=== PATIENT | female | born 1935 | race Caucasian/White ===

== ENCOUNTER 2023-07-02 23:24 | Outpatient (CLI) | payer SELFPAY | END 2023-07-02 23:25 | disposition EMS.NT | LOC: EMS 23:24 | DX: T17.298A Other foreign object in pharynx causing other injury, initial encounter (principal); R04.2 Hemoptysis; W44.8XXA Other foreign body entering into or through a natural orifice, initial encounter ==

== ENCOUNTER 2023-07-08 09:04 | Outpatient (CLI) | payer MEDICARE, OTHER ==
[2023-07-08 15:01] LABS: BASOPHILS % (AUTO) 0.5 %; EOSINOPHILS # (AUTO) 0.1 10^3/uL (0.0-0.7); EOSINOPHILS % (AUTO) 2.1 %; HCT - HEMATOCRIT 38.3 % (37.0-47.0); HGB - HEMOGLOBIN 12.7 g/dL (12.0-16.0); LYMPHOCYTES # (AUTO) 0.8 10^3/uL (1.5-3.5); LYMPHOCYTES % (AUTO) 13.4 %; MEAN CORPUSCULAR HEMOGLOBIN 34.8 pg (27.0-31.0); MEAN CORPUSCULAR HGB CONC 33.2 g/dL (32.0-36.0); MEAN CORPUSCULAR VOLUME 104.9 fL (81.0-99.0); MEAN PLATELET VOLUME 9.3 fL (7.9-10.8); MONOCYTES # (AUTO) 0.5 10^3/uL (0.0-1.0); MONOCYTES % (AUTO) 9.1 %; NEUTROPHILS # (AUTO) 4.2 10^3/uL (1.5-6.6); NEUTROPHILS % (AUTO) 74.5 %; PLT - PLATELET COUNT 200 10^3/uL (130-450); RED BLOOD COUNT 3.65 10^6/uL (4.20-5.40); RED CELL DISTRIBUTION WIDTH 14.2 % (12.0-15.0); WHITE BLOOD COUNT 5.6 x10^3/uL (4.8-10.8)
[2023-07-08 16:11] LABS: CALCIUM 9.7 mg/dL (8.5-10.3); CREATININE 0.6 mg/dL (0.6-1.3); POTASSIUM 3.9 mmol/L (3.5-4.5)
== END 2023-07-08 09:05 | disposition home or self-care (01) ==
LOC: LAB.S 09:04
PROVIDERS: ATTEND Internal Medicine Cardiovascular Disease
DX: I10 Essential (primary) hypertension (principal); I48.0 Paroxysmal atrial fibrillation
CPT/HCPCS: 36415; 80048; 85025

== ENCOUNTER 2023-07-14 07:00 | Outpatient (CLI) | payer MEDICARE, OTHER | END 2023-07-14 23:59 | disposition home or self-care (01) | LOC: LAB.S 07:00 | PROVIDERS: ATTEND Registered Nurse | DX: N12 Tubulo-interstitial nephritis, not specified as acute or chronic (principal); R31.9 Hematuria, unspecified | CPT/HCPCS: 87077; 87086; 87181 ==

== ENCOUNTER 2023-09-17 07:40 | Outpatient (CLI) | payer MEDICARE, OTHER ==
[2023-09-17 15:30] LABS: BASOPHILS % (AUTO) 0.6 %; EOSINOPHILS # (AUTO) 0.1 10^3/uL (0.0-0.7); EOSINOPHILS % (AUTO) 2.8 %; HCT - HEMATOCRIT 37.9 % (37.0-47.0); HGB - HEMOGLOBIN 12.3 g/dL (12.0-16.0); LYMPHOCYTES # (AUTO) 0.9 10^3/uL (1.5-3.5); LYMPHOCYTES % (AUTO) 16.9 %; MEAN CORPUSCULAR HEMOGLOBIN 34.9 pg (27.0-31.0); MEAN CORPUSCULAR HGB CONC 32.5 g/dL (32.0-36.0); MEAN CORPUSCULAR VOLUME 107.7 fL (81.0-99.0); MONOCYTES # (AUTO) 0.4 10^3/uL (0.0-1.0); MONOCYTES % (AUTO) 7.9 %; NEUTROPHILS # (AUTO) 3.6 10^3/uL (1.5-6.6); NEUTROPHILS % (AUTO) 71.6 %; PLT - PLATELET COUNT 226 10^3/uL (130-450); RED BLOOD COUNT 3.52 10^6/uL (4.20-5.40); RED CELL DISTRIBUTION WIDTH 15.5 % (12.0-15.0); WHITE BLOOD COUNT 5.1 x10^3/uL (4.8-10.8)
[2023-09-17 15:42] LABS: CHOL/HDL RATIO 3.3 (<4.4); CHOLESTEROL 158 mg/dL; HDL CHOLESTEROL 48 mg/dL; LDL CHOLESTEROL,CALCULATED 95 mg/dL; TRIGLYCERIDES 77 mg/dL (48-352); VLDL CHOLESTEROL 15 mg/dL
[2023-09-17 15:57] LABS: ALBUMIN 3.7 g/dL (3.2-5.5); ALBUMIN/GLOBULIN RATIO 1.2 (1.0-2.2); ALKALINE PHOSPHATASE 68 IU/L (42-121); ALT ALANINE AMINOTRANSFERASE 9 IU/L (10-60); AST ASPARTATE AMINOTRANSFERASE 27 IU/L (10-42); BILIRUBIN,TOTAL 0.5 mg/dL (0.2-1.0); BUN - BLOOD UREA NITROGEN 12 mg/dL (6-20); CALCIUM 9.4 mg/dL (8.5-10.3); CARBON DIOXIDE - CO2 28 mmol/L (21-32); CHLORIDE 102 mmol/L (101-111); CREATININE 0.6 mg/dL (0.6-1.3); GFR - MDRD 94 (>89); GLUCOSE 124 mg/dL (74-104); POTASSIUM 4.8 mmol/L (3.5-4.5); SODIUM 136 mmol/L (135-145); TOTAL PROTEIN 6.9 g/dL (6.4-8.9)
== END 2023-09-17 07:41 | disposition home or self-care (01) ==
LOC: LAB.S 07:40
PROVIDERS: ATTEND Internal Medicine Cardiovascular Disease
DX: I50.42 Chronic combined systolic (congestive) and diastolic (congestive) heart failure (principal); E78.00 Pure hypercholesterolemia, unspecified; I20.89 Other forms of angina pectoris
CPT/HCPCS: 36415; 80053; 80061; 82172; 83721; 83880; 85025

== ENCOUNTER 2023-09-17 08:00 | Outpatient (CLI) | payer MEDICARE, OTHER | END 2023-09-17 23:59 | disposition home or self-care (01) | LOC: LAB.S 08:00 | PROVIDERS: ATTEND Registered Nurse | DX: R30.0 Dysuria (principal); R31.9 Hematuria, unspecified; I50.42 Chronic combined systolic (congestive) and diastolic (congestive) heart failure; E78.00 Pure hypercholesterolemia, unspecified; I20.89 Other forms of angina pectoris | CPT/HCPCS: 36415; 80053; 80061; 82172; 83721; 83880; 85025; 87077; 87086; 87181 ==

== ENCOUNTER 2023-09-19 12:28 | Outpatient (CLI) | payer MEDICARE, OTHER | END 2023-09-19 12:29 | disposition home or self-care (01) | LOC: DI 12:28 | PROVIDERS: ATTEND Internal Medicine Cardiovascular Disease | DX: I08.3 Combined rheumatic disorders of mitral, aortic and tricuspid valves (principal) | CPT/HCPCS: 93307 ==

== ENCOUNTER 2023-10-01 08:00 | Outpatient (CLI) | payer MEDICARE, OTHER | END 2023-10-01 23:59 | disposition home or self-care (01) | LOC: LAB.S 08:00 | PROVIDERS: ATTEND Registered Nurse | DX: R30.0 Dysuria (principal) | CPT/HCPCS: 87077; 87086; 87181 ==

== ENCOUNTER 2023-10-08 11:44 | Emergency (ER) | payer MEDICARE, OTHER ==
[2023-10-08 12:55] LABS: BILIRUBIN,URINE NEGATIVE (NEGATIVE); GLUCOSE, URINE (UA) NEGATIVE (NEGATIVE); KETONES,URINE (UA) NEGATIVE (NEGATIVE); LEUKOCYTE ESTERASE, URINE NEGATIVE (NEGATIVE); NITRITE,URINE NEGATIVE (NEGATIVE); OCCULT BLOOD,URINE MODERATE (NEGATIVE); PROTEIN,URINE NEGATIVE (NEGATIVE); UROBILINOGEN,URINE 0.2 (NORMAL) E.U./dL (NORMAL)
[2023-10-08 12:56] LABS: CLARITY,URINE CLEAR (CLEAR)
[2023-10-08 13:07] LABS: BACTERIA,URINE Rare /HPF (None Seen); SQUAMOUS EPITHELIAL CELL,UR RARE Squamous (<= Few); WBC,URINE 0-3 /HPF (0-5)
[2023-10-08 13:11] LABS: BASOPHILS % (AUTO) 0.4 %; EOSINOPHILS # (AUTO) 0.3 10^3/uL (0.0-0.7); EOSINOPHILS % (AUTO) 6.3 %; HCT - HEMATOCRIT 31.3 % (37.0-47.0); HGB - HEMOGLOBIN 10.2 g/dL (12.0-16.0); LYMPHOCYTES # (AUTO) 0.6 10^3/uL (1.5-3.5); MEAN CORPUSCULAR HEMOGLOBIN 34.8 pg (27.0-31.0); MEAN CORPUSCULAR HGB CONC 32.6 g/dL (32.0-36.0); MEAN CORPUSCULAR VOLUME 106.8 fL (81.0-99.0); MEAN PLATELET VOLUME 9.6 fL (7.9-10.8); MONOCYTES # (AUTO) 0.4 10^3/uL (0.0-1.0); MONOCYTES % (AUTO) 7.3 %; NEUTROPHILS # (AUTO) 3.6 10^3/uL (1.5-6.6); NEUTROPHILS % (AUTO) 72.4 %; PLT - PLATELET COUNT 153 10^3/uL (130-450); RED BLOOD COUNT 2.93 10^6/uL (4.20-5.40); RED CELL DISTRIBUTION WIDTH 15.6 % (12.0-15.0); WHITE BLOOD COUNT 4.9 x10^3/uL (4.8-10.8)
[2023-10-08 13:39] LABS: ALBUMIN 3.6 g/dL (3.2-5.5); ALBUMIN/GLOBULIN RATIO 1.4 (1.0-2.2); BILIRUBIN,TOTAL 0.6 mg/dL (0.2-1.0); CALCIUM 9.5 mg/dL (8.5-10.3); CREATININE 0.6 mg/dL (0.6-1.3); POTASSIUM 3.8 mmol/L (3.5-4.5); TOTAL PROTEIN 6.2 g/dL (6.4-8.9)
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
[2023-10-08] MEDS: ACETAMINOPHEN 325 MG TABLET PO STA (15:01)
[2023-10-08] MEDS: DIPHENOX/ATROPINE 2.5/0.025 MG TABLET PO STA (15:01)
[2023-10-08 15:35] VITALS: BP 151/81; O2SAT 99
== END 2023-10-08 15:43 | disposition home or self-care (01) ==
LOC: ED 11:44
DX: K52.89 Other specified noninfective gastroenteritis and colitis (principal); K62.5 Hemorrhage of anus and rectum; I11.0 Hypertensive heart disease with heart failure; I50.9 Heart failure, unspecified; E78.00 Pure hypercholesterolemia, unspecified; I48.91 Unspecified atrial fibrillation; I49.9 Cardiac arrhythmia, unspecified; M06.9 Rheumatoid arthritis, unspecified; Z79.01 Long term (current) use of anticoagulants; Z79.899 Other long term (current) drug therapy; Z95.0 Presence of cardiac pacemaker
CPT/HCPCS: 36415; 80053; 81001; 83690; 85025; 87493; 99283; A9270; 81003; 87086

== ENCOUNTER 2024-01-05 14:01 | Outpatient (CLI) | payer MEDICARE, OTHER ==
[2024-01-05 20:18] LABS: CALCIUM 9.5 mg/dL (8.5-10.3); CREATININE 0.5 mg/dL (0.6-1.3)
[2024-01-05 20:23] LABS: BASOPHILS % (AUTO) 0.6 %; EOSINOPHILS # (AUTO) 0.1 10^3/uL (0.0-0.7); EOSINOPHILS % (AUTO) 2.9 %; HGB - HEMOGLOBIN 12.8 g/dL (12.0-16.0); LYMPHOCYTES # (AUTO) 0.8 10^3/uL (1.5-3.5); LYMPHOCYTES % (AUTO) 15.5 %; MEAN CORPUSCULAR HEMOGLOBIN 33.1 pg (27.0-31.0); MEAN CORPUSCULAR VOLUME 103.4 fL (81.0-99.0); MEAN PLATELET VOLUME 10.6 fL (7.9-10.8); MONOCYTES # (AUTO) 0.4 10^3/uL (0.0-1.0); MONOCYTES % (AUTO) 7.4 %; NEUTROPHILS # (AUTO) 3.6 10^3/uL (1.5-6.6); NEUTROPHILS % (AUTO) 73.4 %; PLT - PLATELET COUNT 210 10^3/uL (130-450); RED BLOOD COUNT 3.87 10^6/uL (4.20-5.40); RED CELL DISTRIBUTION WIDTH 16.6 % (12.0-15.0); WHITE BLOOD COUNT 4.8 x10^3/uL (4.8-10.8)
== END 2024-01-05 14:02 | disposition home or self-care (01) ==
LOC: LAB.S 14:01
PROVIDERS: ATTEND Internal Medicine Cardiovascular Disease
DX: I10 Essential (primary) hypertension (principal)
CPT/HCPCS: 36415; 80048; 85025

== ENCOUNTER 2025-03-29 20:11 | Inpatient (IN) ==
--- OUTSIDE RECORDS SUMMARY | 2025-03-29 20:18 | EXTERNAL MEDICAL SUMMARY RPT | Continuity of Care Document ---
Author Organization [place] Address [address] [place] [id number] Phone Problems date description facility 2024-12-29 09:35 Nonrheumatic aortic (valve) [facility] 2024-12-29 09:36 Nonrheumatic aortic (valve) [facility] 2024-12-30 00:03 Nonrheumatic aortic (valve) [facility] 2024-12-30 10:59 Nonrheumatic aortic (valve) [facility] 2025-01-20 14:45 Urinary tract infection, site n ot specified [facility] 2025-01-21 00:06 Urinary tract infection, site n ot specified [facility] 2025-01-24 11:20 Procedure and treatm ent not carried out due to patient leaving prior to being seen by health care provider [facility] 2025-01-25 14:12 Urinary tract infection, site n ot specified [facility] 2025-02-28 06:17 Chest pain, unspecified [facility] 2025-02-28 06:32 Chest pain, unspecified [facility] 2025-03-02 09:57 [facility] 2025-03-02 09:57 Chest pain, [facility] 2025-03-03 15:34 Other chest pain [facility] 2025-03-20 22:55 Pain in thoracic spine [facility] 2025-03-20 22:55 Cough, unspecified [facility] 2025-03-20 22:55 Dyspnea, unspecified [facility] 2025-03-24 09:10 Pain in thoracic spine [facility] 2025-03-24 09:10 Cough, unspecified [facility] 2025-03-24 09:10 Dyspnea, unspecified [facility] 2025-03-24 09:10 Other forms [facility]pnea [facility] 2025-03-24 09:10 Other specified symp toms and signs involving the circulatory and respiratory systems [facility] 2025-03-24 11:02 Shortness of breath Alexa Cobos [facility] Results/Labs test date facility value unit notes Result panel 1 NUCLEATED RED BLOOD CELLS AUTO 2024-12-29 09:53 [facility] /100wbc (missing) BASOPHILS # (AUTO) 2024-12-29 09:53 [facility] 0.0 10 3/ul (missing) NRBC ABSOLUTE COUNT (AUTO) 2024-12-29 09:53 [facility] 0.00 x10 3/ul (missing) EOSINOPHILS # (AUTO) 2024-12-29 09:53 [facility] 0.1 10 3/ul (missing) CREATININE 2024-12-29 09:53 [facility] 0.6 mg/dl As of October 2022 testing method has changed, this may include reference ranges. MONOCYTES # (AUTO) 2024-12-29 09:53 [facility] 0.8 10 3/ul (missing) LYMPHOCYTES # (AUTO) 2024-12-29 09:53 [facility] 0.8 10 3/ul (missing) MEAN CORPUSCULAR VOLUME 2024-12-29 09:53 [facility] 104.4 fl (missing) HGB - HEMOGLOBIN 2024-12-29 09:53 [facility] 12.8 g /dl (missing) GLUCOSE 2024-12-29 09:53 [facility] 122 mg/dl As of October 2022 testing method has changed, this may include reference ranges. SODIUM 2024-12-29 09:53 [facility] 133 mmol/l (missing) RED CELL DISTRIBUTION WIDTH 2024-12-29 09:53 [facility] 14.9 % (mi ssing) PLT - PLATELET COUNT 2024-12-29 09:53 [facility] 195 10 3/ul (missing) RED BLOOD COUNT 2024-12-29 09:53 [facility] 3.63 10 6/ul (missing) CARBON DIOXIDE - CO2 2024-12-29 09:53 [facility] 30 mmol/l As of October 2022 testing method has changed, this may include reference ranges. MEAN CORPUSCULAR HGB CONC 2024-12-29 09:53 [facility] 33.8 g/dl (missing) MEAN CORPUSCULAR HEMOGLOBIN 2024-12-29 09:53 [facility] 35.3 pg (missing) HCT - HEMATOCRIT 2024-12-29 09:53 [facility] 37.9 % (missing) POTASSIUM 2024-12-29 09:53 [facility] 4.2 mmol/l As of October 2022 testing method has changed, this may include reference ranges. NEUTROPHILS # (AUTO) 2024-12-29 09:53 [facility] 5.6 10 3/ul (missing) ANION GAP 2024-12-29 09:53 [facility] 6.0 (missing ) (missing) WHITE BLOOD COUNT 2024-12-29 09:53 [facility] 7.3 x10 3/ul (missing) BUN - BLOOD UREA NITROGEN 2024-12-29 09:53 [facility] 8 mg/dl As of Oct testing method has changed, this may include reference ranges. CALCIUM 2024-12-29 09:53 [facility] 9.3 mg/dl As of October 2022 testing method has changed, this may include reference ranges. MEAN PLATELET VOLUME 2024-12-29 09:53 [facility] 9.6 fl (missing) GFR - MDRD 2024-12-29 09:53 [facility] 94 (missin g) The IDMS-traceable MDRD Study Equation has been validated extensively in and populations between the ages of 18 and 70 with impaired kidney function (eGFR < 60 mL/min/1.73m2) and has shown good performance for patients with all common causes of kidney disease. Although this equation has not been validated for patients older than 70, an MDRD-derived eGFR may still be a useful tool for providers caring for patients older than 70. References: http://www.nkdep.n ih.gov/lab-evaluat ion/gfr/creatinine -stand ardization, last updated June 2011. CHLORIDE 2024-12-29 09:53 [facility] 97 mmol/l As of October 2022 testing method has changed, this may include reference ranges. Result panel 2 GENTAMICIN 2025-01-20 14:12 [facility] >=16 (missing) (missing) TRIMETHOPRIM/SULFA METHOXAZOLE 2025-01-20 14:12 [facility] >=320 (missing) (missing) CEFEPIME 2025-01-20 14:12 [facility] <=0.12 (missing) (missing) ERTAPENEM 2025-01-20 14:12 [facility] <=0.12 (missing) (missing) CEFTRIAXONE 2025-01-20 14:12 [facility] <=0.25 (missing) (missing) CIPROFLOXACIN 2025-01-20 14:12 [facility] <=0.25 (missing) (missing) IMIPENEM 2025-01-20 14:12 [facility] <=0.25 (missing) (missing) NITROFURANTOIN 2025-01-20 14:12 [facility] <=16 (missing) (missing) AMPICILLIN/SULBACT AM 2025-01-20 14:12 [facility] <=2 (missing) (missing) AMPICILLIN 2025-01-20 14:12 [facility] <=2 (missing) This organism is NEGATIVE for Extended Spectrum Beta Lactamase CEFAZOLIN 2025-01-20 14:12 [facility] <=4 (missing) (missing) LEVOFLOXACIN 2025-01-20 14:12 [facility] 0.5 (missing) (missing) CUL, URINE 2025-01-20 14:12 [facility] 100>100,000 CFU/mL (missing) (missing) TOBRAMYCIN 2025-01-20 14:12 [facility] 8 (missing) (missing) O:ESCCOL 2025-01-20 14:12 [facility] ESCCOLESCHERICHIA COLIESCHERICHIA COLI (missing) (missing) CUL, URINE 2025-01-20 14:12 [facility] GNRGRAM NEGATIVE NICHELLE TO BE FURTHER IDENTIFIED (missing) (missing) CUL, URINE 2025-01-20 14:12 [facility] IDMIC.1ORG 1 ID/DEAN COM* (missing) (missing) CUL, URINE 2025-01-20 14:12 [facility] ORG.1PRELIM ORG ID* (missing) (missing) CUL, URINE 2025-01-20 14:12 [facility].1ORG 1 CC* (missing) (missing) CUL, URINE 2025-01-20 14:12 [facility].6COLONY COUNT (missing) (missing) CUL, URINE 2025-01-20 14:12 [facility] YIDENTIFICATION AND SENSITIVITIES TO FOLLOW (missing) (missing) Result panel 3 NUCLEATED RED BLOOD CELLS AUTO 2025-02-28 05:09 [facility] 0.0 /100wbc (missing) BASOPHILS # (AUTO) 2025-02-28 05:09 [facility] 0.0 10 3/ul (missing) NRBC ABSOLUTE COUNT (AUTO) 2025-02-28 05:09 [facility] 0.00 x10 3/ul (missing) EOSINOPHILS # (AUTO) 2025-02-28 05:09 [facility] 0.1 10 3/ul (missing) MONOCYTES # (AUTO) 2025-02-28 05:09 [facility] 0.4 10 3/ul (missing) CREATININE 2025-02-28 05:09 [facility] 0.5 mg/dl As of October 2022 testing method has changed, this may include reference ranges. LYMPHOCYTES # (AUTO) 2025-02-28 05:09 [facility] 0.7 10 3/ul (missing) BILIRUBIN,TOTAL 2025-02-28 05:09 [facility] 0.8 mg/dl As of October 2022 testing method has changed, this may include reference ranges. ALBUMIN/GLOBULIN RATIO 2025-02-28 05:09 [facility] 1.3 (missing) (missing) CHLORIDE 2025-02-28 05:09 [facility] 100 mmol/l As of October 2022 testing method has changed, this may include reference ranges. MEAN CORPUSCULAR VOLUME 2025-02-28 05:09 [facility] 104.5 fl (missing) GFR - MDRD 2025-02-28 05:09 [facility] 116 (missing) The IDMS-traceable MDRD Study Equation has been validated extensively in and populations between the ages of 18 and 70 with impaired kidney function (eGFR < 60 mL/min/1.73m2) and has shown good performance for patients with all common causes of kidney disease. Although this equation has not been validated for patients older than 70, an MDRD-derived eGFR may still be a useful tool for providers caring for patients older than 70. References: http://www.nkdep. nih.gov/lab-evalu ation/gfr/creatin ine-stand ardization, last updated June 2011. GLUCOSE 2025-02-28 05:09 [facility] 116 mg/dl As of October 2022 testing method has changed, this may include reference ranges. ALT ALANINE AMINOTRANSFERASE 2025-02-28 05:09 [facility] 12 iu/l As of October 2022 testing method has changed, this may include reference ranges. HGB - HEMOGLOBIN 2025-02-28 05:09 [facility] 12.7 g/dl (missing) SODIUM 2025-02-28 05:09 [facility] [employer] 134 mmol/l (missing) RED CELL DISTRIBUTION WIDTH 2025-02-28 05:09 [facility] 15.2 % (missing) PLT - PLATELET COUNT 2025-02-28 05:09 [facility] 167 10 3/ul (missing) GLOBULIN 2025-02-28 05:09 [facility] [employer] 2.7 g/dl (missing) AST ASPARTATE AMINOTRANSFERASE 2025-02-28 05:09 [facility] 23 iu/l As of October 2022 testing method has changed, this may include reference ranges. CARBON DIOXIDE - CO2 2025-02-28 05:09 [facility] 27 mmol/l As of October 2022 testing method has changed, this may include reference ranges. ALBUMIN 2025-02-28 05:09 [facility] 3.5 g/dl As of October 2022 testing method has changed, this may include reference ranges. RED BLOOD COUNT 2025-02-28 05:09 [facility] 3.55 10 6/ul (missing) POTASSIUM 2025-02-28 05:09 [facility] 3.6 mmol/l As of October 2022 testing method has changed, this may include reference ranges. MEAN CORPUSCULAR HGB CONC 2025-02-28 05:09 [facility] 34.2 g/dl (missing) MEAN CORPUSCULAR HEMOGLOBIN 2025-02-28 05:09 [facility] 35.8 pg (missing) HCT - HEMATOCRIT 2025-02-28 05:09 [facility] 37.1 % (missing) NEUTROPHILS # (AUTO) 2025-02-28 05:09 [facility] 4.8 10 3/ul (missing) BUN - BLOOD UREA NITROGEN 2025-02-28 05:09 [facility] 5 mg/dl As of October 2022 testing method has changed, this may include reference ranges. WHITE BLOOD COUNT 2025-02-28 05:09 [facility] 6.0 x10 3/ul (missing) TOTAL PROTEIN 2025-02-28 05:09 [facility] 6.2 g/dl As of October 2022 testing method has changed, this may include reference ranges. ANION GAP 2025-02-28 05:09 [facility] 7.0 (missing) (missing) CALCIUM 2025-02-28 05:09 [facility] 8.7 mg/dl As of October 2022 testing method has changed, this may include reference ranges. TROPONIN I HIGH SENSITIVITY 2025-02-28 05:09 [facility] 8.8 ng/l A HIGH SENSITIVITY TROPONIN result of >= 14.9 ng/L for females is considered POSITIVE. A HIGH SENSITIVITY TROPONIN result of >= 19.8 ng/L for males is considered POSITIVE. A HIGH SENSITIVITY TROPONIN result of >= 17.9 ng/L for unspecified is considered POSITIVE. MEAN PLATELET VOLUME 2025-02-28 05:09 [facility] 9.9 fl (missing) ALKALINE PHOSPHATASE 2025-02-28 05:09 [facility] 90 iu/l As of October 2022 testing method has changed, this may include reference ranges. Result panel 4 NUCLEATED RED BLOOD CELLS AUTO 2025-03-20 21:00 [facility] 0.0 /100wbc (missing) NRBC ABSOLUTE COUNT (AUTO) 2025-03-20 21:00 [facility] 0.00 x10 3/ul (missing) BASOPHILS # (AUTO) 2025-03-20 21: [facility] 0.1 10 3/ul (missing) EOSINOPHILS # (AUTO) 2025-03-20 21:00 [facility] 0.3 10 3/ul (missing) CREATININE 2025-03-20 21:00 [facility] 0.5 mg/dl As of October 2022 testing method has changed, this may include reference ranges. MONOCYTES # (AUTO) 2025-03-20 21:00 [facility] 0.6 10 3/ul (missing) LYMPHOCYTES # (AUTO) 2025-03-20 21:00 [facility] 0.6 10 3/ul (missing) BILIRUBIN,TOTAL 2025-03-20 21:00 [facility] 0.6 mg/dl As of October 2022 testing method has changed, this may include reference ranges. ALBUMIN/GLOBULIN RATIO 2025-03-20 21:00 [facility] 1.3 (missing) (missing) MEAN CORPUSCULAR VOLUME 2025-03-20 21:00 [facility] 105.7 fl (missing) ALKALINE PHOSPHATASE 2025-03-20 21:00 [facility] 108 iu/l As of October 2022 testing method has changed, this may include reference ranges. LIPASE 2025-03-20 21:00 [facility] 11 u/l As of October 2022 testing method has changed, this may include reference ranges. HGB - HEMOGLOBIN 2025-03-20 21:00 [facility] 11.3 g/dl (missing) GFR - MDRD 2025-03-20 21:00 [facility] 116 (missing) The IDMS-traceable MDRD Study Equation has been validated extensively in and populations between the ages of 18 and 70 with impaired kidney function (eGFR < 60 mL/min/1.73m2) and has shown good performance for patients with all common causes of kidney disease. Although this equation has not been validated for patients older than 70, an MDRD-derived eGFR may still be a useful tool for providers caring for patients older than 70. References: http://www.nkdep. nih.gov/lab-evalu ation/gfr/creatin ine-stand ardization, last updated June 2011. ALT ALANINE AMINOTRANSFERASE 2025-03-20:00 [facility] 13 iu/l As of October 2022 testing method has changed, this may include reference ranges. SODIUM 2025-03-20 21:00 [facility] 132 mmol/l (missing) GLUCOSE 2025-03-20:00 [facility] 134 mg/dl As of October 2022 testing method has changed, this may include reference ranges. RED CELL DISTRIBUTION WIDTH 2025-03-20:00 [facility] 14.8 % (missing) PLT - PLATELET COUNT 2025-03-20 21:00 [facility] 178 10 3/ul (missing) GLOBULIN 2025-03-20 21:00 [facility] 2.6 g/dl (missing) AST ASPARTATE AMINOTRANSFERASE 2025-03-20: [facility] 21 iu/l As of October 2022 testing method has changed, this may include reference ranges. CARBON DIOXIDE - CO2 2025-03-20: [facility] 29 mmol/l As of October 2022 testing method has changed, this may include reference ranges. RED BLOOD COUNT 2025-03-20: [facility] 3.14 10 6/ul (missing) ALBUMIN 2025-03-20: [facility] 3.3 g/dl As of October 2022 testing method has changed, this may include reference ranges. POTASSIUM 2025-03-20: [facility] 3.8 mmol/l As of October 2022 testing method has changed, this may include reference ranges. HCT - HEMATOCRIT 2025-03-20: [facility] 33.2 % (missing) MEAN CORPUSCULAR HGB CONC 2025-03-20: [facility] 34.0 g/dl (missing) MEAN CORPUSCULAR HEMOGLOBIN 2025-03-20:00 [facility] 36.0 pg (missing) TOTAL PROTEIN 2025-03-20: [facility] 5.9 g/dl As of October 2022 testing method has changed, this may include reference ranges. ANION GAP 2025-03-20: [facility] 6.0 (missing) (missing) NEUTROPHILS # (AUTO) 2025-03-20:00 [facility] 6.6 10 3/ul (missing) BUN - BLOOD UREA NITROGEN 2025-03-20 21:00 [employer] 7 mg/dl As of October 2022 testing method has changed, this may include reference ranges. WHITE BLOOD COUNT 2025-03-20 21:00 [facility] 8.1 x10 3/ul (missing) CALCIUM 2025-03-20 21:00 [facility] [employer] 8.6 mg/dl As of October 2022 testing method has changed, this may include reference ranges. MEAN PLATELET VOLUME 2025-03-20 21:00 [facility] 9.5 fl (missing) CHLORIDE 2025-03-20 21:00 [facility] 97 mmol/l As of October 2022 testing method has changed, this may include reference ranges. Result panel 5 CASTS, URINE 2025-03-20 21:45 [facility] 0-2 Hyaline Casts /lpf (missing) WBC,URINE 2025-03-20 21:45 [facility] 0-3 /hpf (missing) RBC,URINE 2025-03-20 21:45 [facility] 0-5 /hpf (missing) UROBILINOGEN,URI NE 2025-03-20 21:45 [facility] 0.2 (NORMAL) e.u./dl (missing) SPECIFIC GRAVITY,URINE 2025-03-20 21:45 [facility] 1.020 (missing) (missing) PH,URINE 2025-03-20:45 [facility] 6.0 ph (missing) CLARITY,URINE 2025-03-20:45 [facility] CLEAR (missing) (missing) SQUAMOUS EPITHELIAL CELL,UR 2025-03-20 21:45 [facility] FEW Squamous (missing) (missing) LEUKOCYTE ESTERASE, URINE 2025-03-20 21:45 [facility] NEGATIVE (missing) (missing) NITRITE,URINE 2025-03-20 21:45 [facility] NEGATIVE (missing) (missing) BILIRUBIN,URINE 2025-03-20 21:45 [facility] NEGATIVE (missing) Bilirubin can be influenced by color interference. Please correlate positive results with clinical presentation GLUCOSE, URINE (UA) 2025-03-20 21:45 [facility] NEGATIVE mg/dl (missing) KETONES,URINE (UA) 2025-03-20 21:45 [facility] NEGATIVE mg/dl (missing) PROTEIN,URINE 2025-03-20 21:45 [facility] NEGATIVE mg/dl (missing) UR CULTURE IF IND 2025-03-20 21:45 [facility] NOT INDICATED (missing) (missing) BACTERIA,URINE 2025-03-20 21:45 [facility] None Seen /hpf (missing) OCCULT BLOOD,URINE 2025-03-20 21:45 [facility] TRACE-LYSED (missing) (missing) COLOR,URINE 2025-03-20 21:45 [facility] YELLOW (missing) URINE CATHETERIZED Social History date description facility
--- NOTE | 2025-03-29 20:36 | ED Physician Documentation ---
History of Present Illness Stated complaint Stated Complaint: BILAT LOWER LEG SWELLING Chief complaint Chief Complaint: General History obtained from History obtained from: Patient History of Present Illness Timing: Prior to arrival Additonal information Additional information: Patient 89-year-old female presenting to the emergency department with concerns for increase in lower leg swelling and increased shortness of breath. Patient was seen here about a week ago for some right chest pain at that time she had a reassuring workup. Patient has history of remarkable for pacemaker placed back in the 80s. History of A-fib history of recurrent UTIs chronic back pain and an episode of diarrhea today. Patient denies any fevers chills nausea or vomiting. She has some abnormal bruising to her right foot. She denies any recent trauma or significant pain but has had significant swelling in her lower legs she does not wear compression socks at baseline. Meds/Allgy Home Medications Ambulatory Orders Medication Instructions Recorded Confirmed apixaban 5 mg tablet (Eliquis) 10 mg PO DAILY 10/08/23 01/20/25 isosorbide mononitrate 30 mg 30 mg PO DAILY 10/08/23 1 tablet,extended release 24 hr metoprolol tartrate 50 mg tablet 50 mg PO BID 10/08/23 01/20/25 acetaminophen 325 mg tablet 650 mg PO Q6H PRN fever or pain 02/11/24 01/20/25 (Tylenol) ferrous sulfate 325 mg (65 mg 325 mg PO QDAY 02/11/24 01/20/25 iron) tablet losartan 50 mg tablet 150 mg PO DAILY 02/11/2406/15 Lactobacillus acidophilus 10 100 mmu cells PO DAILY 01/20/25 billion cell capsule (Probacap) cranberry fruit concentrate 250 mg 250 mg PO TID 07/1501/20/25 chewable tablet (Azo Cranberry) d-mannose 500 mg capsule (AZO mg PO 07/15/24 01/20/25 D-Mannose) folic acid 1 mg tablet 1 mg PO DAILY 07/15/2401/20 furosemide 40 mg tablet 40 mg PO DAILY PRN weight ga in 07/15/24 01/20/25 hydrocortisone 2.5 % topical cream 1 applic [place] DAILY P RN hemorrhoids 07/15/24 01/20/25 with perineal applicator #30 grams (Anusol-HC) nitroglycerin 0.4 mg sublingual 0.4 mg sublingual Q5M PRN chest 07/15/24 01/20/25 tablet pain psyllium husk 0.52 gram capsule 0.52 g PO DAILY 01/20/25 (Wal-Mucil Fiber) vitamin [id number] B1 oral liquid ea PO 07/15/24 1006/15 zinc oxide 30.6 % topical cream 1 applic topical 6XD P RN skin 07/15/24 01/20/25 irritation #92 grams carbamide peroxide 6.5 % ear drops 3 - 5 drp otic (ear ) BID 11/28/24 01/20/25 (Debrox) hydrochlorothiazide 25 mg tablet 25 mg PO QDAY 5 01/20/25 losartan 25 mg tablet 25 mg PO QDAY 11/28/2401/20 miconazole nitrate 2 % topical 1 applic topical BID 01/20/25 cream oxycodone 5 mg tablet 5 mg PO Q8H PRN pain #10 tab s 02/28/25 methotrexate sodium 10 mg tablet 10 mg PO QWEEK Rheuma toid 03/01/25 arthritis 4 weeks #4 tabs methotrexate sodium 10 mg tablet 20 mg (2 x 10 mg) PO QWEEK #10 tabs 03/01/25 hydroxychloroquine 200 mg tablet 200 mg PO BID Rheumat oid arthritis 03/03/25 30 days #60 tabs Augmentin 875 mg-potassium 1 tab PO BID #10 tabs 03/20 clavulanate 125 mg tablet albuterol sulfate 90 mcg/actuation 2 puff inhalation Q ID PRN 03/20/25 aerosol inhaler (Ventolin HFA) shortness of breath or wheezing #6.7 grams dexamethasone 2 mg tablet 2 mg PO DAILY #5 tabs tramadol 50 mg tablet 50 mg PO TID PRN pain #14 ta bs 03/20/25 Allergies Allergies Allergy/AdvReac Type Severity Reaction Status Date / Time omeprazole Allergy Severe Unknown Verified 03/29/25 20:17 prednisone AdvReac Severe Nausea Verified 03/29/25 20:17 PFSH Active Problems All Active Problems (Updated 03/29/25 @ 21:43 by Marlena Orozco MD) Acute respiratory failure (Acute) Localized swelling of both lower legs (Acute) Increasing shortness of breath (Acute) Acute CHF (congestive heart failure) (Acute) Acute dyspnea (Acute) Acute right-sided thoracic back pain (Acute) Cough (Acute) Right-sided chest pain (Acute) Complicated UTI (urinary tract infection) (Acute) Frequent UTI (Acute) Pre-operative clearance (Acute) Atrial fibrillation, permanent (Acute) Generalized arthritis (Acute) Systolic ejection murmur (Acute) Encounter for health-related screening (Acute) Intertrigo (Acute) Hematuria (Acute) Pyelonephritis (Acute) Bright red blood per rectum (Acute) Impacted cerumen, bilateral (Acute) Unspecified fall, initial encounter (Acute) Hematoma (Acute) Active mental health advance directive (Acute) Rheumatoid arthritis (Acute) BMI 34.0-34.9,adult (Acute) Encounter for medication refill (Acute) Skin breakdown (Acute) Dysuria (Acute) Vaginal bleeding (Acute) Cystitis (Acute) Medical History Medical History Sepsis Heart failure Pacemaker Anemia Hypertension Surgical History Surgical History H/O right breast biopsy Breast cancer 2010 H/O endoscopy H/O colostomy 06/2020 Reversal was in 2021 H/O colonoscopy History of ankle surgery Left Ankle: Hx laparoscopic cholecystectomy 1982 H/O abdominal hysterectomy 1975 History of permanent cardiac pacemaker placement x3 Social History Social History Smoking Status: Never smoker Do you vape?: No Do you feel safe in your home environment?: Yes History of physical, verbal, emotional, or financial abuse?: No Frequency: Daily Number of drinks/day: 1 POLST Patient has POLST: No Exam Exam Vital Signs: Vital Signs x48h Temp Pulse Resp BP Pulse Ox 03/29/25 20:17 75 22 88 L 03/29/25 20:15 36.6 C 73 20 150/86 H 90 L Constitutional normal general appearance HENMT normocephalic Eyes PERRL, EOMs intact bilaterally and conjunctivae normal Neck/C-Spine visual inspection normal Lymph no lymphadenopathy noted Respiratory Mildly tachypneic here in the ED with rales on auscultation no accessory use of muscles patient speaking in full sentences no acute distress. Cardiovascular normal heart rate noted and regular rhythm noted Extremities Significant swelling noted to bilateral legs with 3+ pitting edema bilaterally. Patient has bruising to anterior portion of right foot but no obvious tenderness to this region. No diffuse anasarca swelling and pain edema as below bilateral knees Results Vitals Vitals: Vital Signs - 24 hr 03/29/25 20:15 03/29/25 20:17 03/29/25 20:30 Temperature 36.6 C Temperature Source Temporal Artery Scan Pulse Rate 73 75 Respiratory Rate 20 22 Blood Pressure 150/86 H O2 Saturation 90 L 88 L Oxygen Delivery Method Nasal Cannula O2 Source Room air Room air Oxygen Flow Rate 2 Pain Intensity 4 4 Oxygen O2 Source Room air Oxygen Flow Rate 2 EKG (time done) 2138: EKG releavant findings:: EKG personally interpreted by author of this note. Relevant findings are: Rate: Rate (enter#) (78) Rhythm: Paced Compare to prior EKG: Unchanged from prior EKG Computer interpretation: Agree with computer Labs Labs: Laboratory Tests 03/29/25 20:37 WBC 9.3 RBC 3.27 L Hgb 11.7 L Hct 34.6 L MCV 105.8 H MCH 35.8 H MCHC 33.8 RDW 15.1 H Plt Count 218 MPV 9.5 Neut # (Auto) 7.7 H Lymph # (Auto) 0.6 L [place] # (Auto) 0.9 Eos # (Auto) 0.1 Baso # (Auto) 0.0 Absolute Nucleated RBC 0.00 Nucleated RBC % 0.0 Sodium 132 L Potassium 4.3 Chloride 98 L Carbon Dioxide 32 Anion Gap 2.0 L BUN 7 Creatinine 0.5 L Estimated GFR (MDRD) 116 Glucose 116 H Calcium 8.4 L Magnesium 2.1 Total Bilirubin 0.7 AST 24 ALT 15 Alkaline Phosphatase 132 H B-Natriuretic Peptide 469 H Total Protein 5.9 L Albumin 3.1 L Globulin 2.8 Albumin/Globulin Ratio 1.1 PD Medical Decision Making ED course Complexity details: reviewed old records and reviewed results ED course: Patient 89-year-old female presenting to the emergency department with increased shortness of breath that she is having increased leg swelling and abnormal bruising to her right foot. Patient has history of atrial fibrillation she is on Eliquis. She has increasing swelling to her legs and does not wear compression stockings. Patient is on hydrochlorothiazide 25 but no other water pills. She has no fevers or chills. No recent trauma to her legs. She is hypoxic to 88% on arrival and started on 2 L nasal cannula patient is not on oxygen at baseline. Significant swelling noted to bilateral lower legs with 3+ pitting edema no extension above the knees. She has rales on auscultation of the lungs. Reviewed with patient visit here on 03/20 show she had chest x-ray and was started on Decadron to cover for possible URI. Patient notes no persistent cough but she is having worsening shortness of breath. Chest x-ray is concerning for fluid overload worse compared to from last week on my initial examination. Pending radiologist review. BNP elevated in the 400s. Reviewed of previous ultrasound from September shows EF of 55 to 60%. Patient given patient's leg swelling shortness of breath and hypoxia. Patient will be admitted for acute CHF. Pending x-ray of right foot. I reviewed with hospitalist who is agreeable with admission at this time with Dr. Louie from telemetry hospitalist.Patient was given a dose of IV 20 mg Lasix here in the ED as she is usually on 40 as needed for weight gain. Patient labs are otherwise stable with no significant leukocytosis no signs of pneumonia hemoglobin stable at 11.3 and creatinine of 0.5 with a GFR of 116. Patient is having good urine output here in the ED. She will be admitted overnight and pateint is agreeable with this plan. She remains on 2 L NC at time of admission X-ray right foot: Age-indeterminate fracture at the base of the fifth proximal phalanx.X-ray returned after patient was admitted I placed patient in a postop shoe here in the ED it appears age-indeterminate patient is not having specific pain over this region but given some new bruising to her foot will place in postop shoe here in the ED. Raj hospitalist [employer] made aware Discharge Plan Discharge Patient Disposition: [facility] DC/Xfer Condition: Good Clinical Impression: Acute CHF (congestive heart failure), Increasing shortness of breath, Localized swelling of both lower legs Prescriptions: No Action Debrox 6.5 % drops 3 - 5 drp otic (ear) BID hydrochlorothiazide 25 mg tablet 25 mg PO QDAY losartan 25 mg tablet 25 mg PO QDAY miconazole nitrate 2 % cream 1 applic topical BID methotrexate sodium 10 mg tablet 10 mg PO QWEEK 28 Days Qty: 4 3RF Rx Instructions: 10 mg in the AM and 10mg in the PM on Friday only methotrexate sodium 10 mg tablet 20 mg PO QWEEK Qty: 10 2RF hydroxychloroquine 200 mg tablet 200 mg PO BID 30 Days Qty: 60 3RF metoprolol tartrate 50 MG tablet 50 mg PO BID isosorbide mononitrate 30 MG tablet extended release 24 hr 30 mg PO DAILY Eliquis 5 MG tablet 10 mg PO DAILY folic acid 1 mg tablet 1 mg PO DAILY furosemide 40 mg tablet 40 mg PO DAILY PRN (Reason: weight gain) nitroglycerin 0.4 mg tablet, sublingual 0.4 mg sublingual Q5M PRN (Reason: chest pain) Rx Instructions: do not exceed 3 doses per episode Probacap 10 billion cell capsule 100 mmu cells PO DAILY vitamin [id number] B1 Liquid PO psyllium husk [Wal-Mucil Fiber] 0.52 gram capsule 0.52 g PO DAILY AZO D-Mannose 500 mg capsule PO Azo Cranberry 250 mg tablet,chewable 250 mg PO TID hydrocortisone [Anusol-HC] 2.5 % cream with perineal applicator 1 applic [place] DAILY PRN (Reason: hemorrhoids) Qty: 30 0RF zinc oxide 30.6 % cream 1 applic topical 6XD PRN (Reason: skin irritation) Qty: 92 0RF Rx Instructions: good for wet areas you want to dry out oxycodone 5 mg tablet 5 mg PO Q8H PRN (Reason: pain) Qty: 10 0RF amoxicillin-pot clavulanate 875-125 mg tablet 1 tab PO BID Qty: 10 0RF tramadol 50 mg tablet 50 mg PO TID PRN (Reason: pain) Qty: 14 0RF albuterol sulfate [Ventolin HFA] 90 mcg/actuation HFA aerosol inhaler 2 puff inhalation QID PRN (Reason: shortness of breath or wheezing) Qty: 6.7 0RF dexamethasone 2 mg tablet 2 mg PO DAILY Qty: 5 0RF losartan 50 mg tablet 150 mg PO DAILY ferrous sulfate 325 mg (65 mg iron) tablet 325 mg PO QDAY acetaminophen [Tylenol] 325 mg tablet 650 mg PO Q6H PRN (Reason: fever or pain) Print Language: Cuban
[2025-03-29 20:47] LABS: HCT - HEMATOCRIT 34.6 % (37.0-47.0); HGB - HEMOGLOBIN 11.7 g/dL (12.0-16.0); MEAN PLATELET VOLUME 9.5 fL (7.9-10.8); NRBC ABSOLUTE COUNT (AUTO) 0.00 x10^3/uL; NUCLEATED RED BLOOD CELLS AUTO 0.0 /100WBC; PLT - PLATELET COUNT 218 10^3/uL (130-450); RED CELL DISTRIBUTION WIDTH 15.1 % (12.0-15.0)
[2025-03-29 21:01] LABS: ALT ALANINE AMINOTRANSFERASE 15.0 IU/L (10-60); AST ASPARTATE AMINOTRANSFERASE 24.0 IU/L (10-42); BUN - BLOOD UREA NITROGEN 7.0 mg/dL (6-20); CARBON DIOXIDE - CO2 32.0 mmol/L (21-32); CREATININE 0.5 mg/dL (0.6-1.3); GFR - MDRD 116.0 (>89)
[2025-03-29] MEDS: FUROSEMIDE 20 MG/2 ML VIAL IVP STA ×2 (21:31→21:34)
--- NOTE | 2025-03-29 21:38 | XRAY Report ---
PROCEDURE: XR Chest 1V INDICATIONS: sob TECHNIQUE: One view of the chest was acquired. COMPARISON: 03/20/2025 FINDINGS: Surgical changes and devices: Left chest wall generator with cardiac leads. Surgical clips project over the right axilla. Lungs and pleura: Peribronchial cuffing with increased interstitial markings. Small pleural effusions. Mediastinum: Cardiomegaly. Normal contour otherwise. Bones and chest wall: No suspicious bony lesions. Overlying soft tissues appear unremarkable. IMPRESSION: Moderate pulm edema and small pleural effusions. Reviewed by: Erlin Mcconnell MD on 03/29/2025 9:35 PM PST Approved by: Erlin Mcconnell MD on 03/29/2025 9:35 PM PST Station ID: [email or web address]
--- NOTE | 2025-03-29 21:40 | XRAY Report ---
PROCEDURE: XR Foot 3+V RT INDICATIONS: right foot pain TECHNIQUE: 3 views of the foot were acquired. COMPARISON: None. FINDINGS: Bones: Age-indeterminate fracture of the base of the fifth proximal phalanx. Decreased bone mineralization. Screw and plate fixation of the distal fibula. Hammertoe deformities of the third through fifth digits. Soft tissues: Significant midfoot edema. IMPRESSION: Age-indeterminate fracture at the base of the fifth proximal phalanx. Reviewed by: Erlin Mcconnell MD on 03/29/2025 9:36 PM PST Approved by: Erlin Mcconnell MD on 03/29/2025 9:36 PM PST Station ID: [email or web address]
--- NOTE | 2025-03-29 21:48 | HISTORY & PHYSICAL EXAMINATION ---
Chief Complaint Chief Complaint Chief Complaint: shortness of breath History of Present Illness History Obtained From Exam Limitations: telemedicine History of Present Illness HPI Comment/Other: 89 yoF with a h/o Hypertension, rheumatoid arthritis, atrial fibrillation, HFpEF 55%, pacemaker. Patient presented to the ED with a week of shortness of breath and lower extremity edema. Symptoms started with non-productive cough a week ago. She had workup that demonstrated opacities on chest xray concerning for pulmoanry edema vs pneumonia. she was started on antibotics, steroids outpatient. Symptoms persistented and she started to notice bilateral lower extremity edema. she denies any wounds or recent injury to her lower extremities. she is on lasix 40mg po as needed. on presentation to the ed she was noteed to be hypoxic on room air and required initiation of 2l nasal canula oxygen. Chest xray again demonstrated findings concerning for pulmonary edema. I will admit for acute on chronic chf adn respiratory failure. This visit was performed using telehealth tools, including phone and live-video. patient provided verbal consent to complete this telemedicine encounter. During the time my interview and evaluation, the patient was located at [facility] in the [facility], I was located in [place]. Meds/Allgy Home Medications Ambulatory Orders Medication Instructions Recorded Confirmed apixaban 5 mg tablet (Eliquis) 10 mg PO DAILY 10/08/23 01/20/25 isosorbide mononitrate 30 mg 30 mg PO DAILY 10/08/23 1 tablet,extended release 24 hr metoprolol tartrate 50 mg tablet 50 mg PO BID 10/08/23 01/20/25 acetaminophen 325 mg tablet 650 mg PO Q6H PRN fever or pain 02/11/24 01/20/25 (Tylenol) ferrous sulfate 325 mg (65 mg 325 mg PO QDAY 02/11/24 01/20/25 iron) tablet losartan 50 mg tablet 150 mg PO DAILY 02/11/2406/15 Lactobacillus acidophilus 10 100 mmu cells PO DAILY 01/20/25 billion cell capsule (Probacap) cranberry fruit concentrate 250 mg 250 mg PO TID 07/1501/20/25 chewable tablet (Azo Cranberry) d-mannose 500 mg capsule (AZO mg PO 07/15/24 01/20/25 D-Mannose) folic acid 1 mg tablet 1 mg PO DAILY 07/15/2401/20 furosemide 40 mg tablet 40 mg PO DAILY PRN weight ga in 07/15/24 01/20/25 hydrocortisone 2.5 % topical cream 1 applic [place] DAILY P RN hemorrhoids 07/15/24 01/20/25 with perineal applicator #30 grams (Anusol-HC) nitroglycerin 0.4 mg sublingual 0.4 mg sublingual Q5M PRN chest 07/15/24 01/20/25 tablet pain psyllium husk 0.52 gram capsule 0.52 g PO DAILY 01/20/25 (Wal-Mucil Fiber) vitamin [id number] B1 oral liquid ea PO 07/15/2406/15 zinc oxide 30.6 % topical cream 1 applic topical 6XD P RN skin 07/15/24 01/20/25 irritation #92 grams carbamide peroxide 6.5 % ear drops 3 - 5 drp otic (ear ) BID 11/28/24 01/20/25 (Debrox) hydrochlorothiazide 25 mg tablet 25 mg PO QDAY 5 01/20/25 losartan 25 mg tablet 25 mg PO QDAY 11/28/2401/20 miconazole nitrate 2 % topical 1 applic topical BID 01/20/25 cream oxycodone 5 mg tablet 5 mg PO Q8H PRN pain #10 tab s 02/28/25 methotrexate sodium 10 mg tablet 10 mg PO QWEEK Rheuma toid 03/01/25 arthritis 4 weeks #4 tabs methotrexate sodium 10 mg tablet 20 mg (2 x 10 mg) PO QWEEK #10 tabs 03/01/25 hydroxychloroquine 200 mg tablet 200 mg PO BID Rheumat oid arthritis 03/03/25 30 days #60 tabs Augmentin 875 mg-potassium 1 tab PO BID #10 tabs 03/20 clavulanate 125 mg tablet albuterol sulfate 90 mcg/actuation 2 puff inhalation Q ID PRN 03/20/25 aerosol inhaler (Ventolin HFA) shortness of breath or wheezing #6.7 grams dexamethasone 2 mg tablet 2 mg PO DAILY #5 tabs tramadol 50 mg tablet 50 mg PO TID PRN pain #14 ta bs 03/20/25 Allergies Allergies Allergy/AdvReac Type Severity Reaction Status Date / Time omeprazole Allergy Severe Unknown Verified 03/29/25 20:17 prednisone AdvReac Severe Nausea Verified 03/29/25 20:17 [facility] Active Problems All Active Problems (Updated 03/29/25 @ 21:43 by Marlena Orozco MD) Acute respiratory failure (Acute) Localized swelling of both lower legs (Acute) Increasing shortness of breath (Acute) Acute CHF (congestive heart failure) (Acute) Acute dyspnea (Acute) Acute right-sided thoracic back pain (Acute) Cough (Acute) Right-sided chest pain (Acute) Complicated UTI (urinary tract infection) (Acute) Frequent UTI (Acute) Pre-operative clearance (Acute) Atrial fibrillation, permanent (Acute) Generalized arthritis (Acute) Systolic ejection murmur (Acute) Encounter for health-related screening (Acute) Intertrigo (Acute) Hematuria (Acute) Pyelonephritis (Acute) Bright red blood per rectum (Acute) Impacted cerumen, bilateral (Acute) Unspecified fall, initial encounter (Acute) Hematoma (Acute) Active mental health advance directive (Acute) Rheumatoid arthritis (Acute) BMI 34.0-34.9,adult (Acute) Encounter for medication refill (Acute) Skin breakdown (Acute) Dysuria (Acute) Vaginal bleeding (Acute) Cystitis (Acute) Medical History Medical History Sepsis Heart failure Pacemaker Anemia Hypertension Surgical History Surgical History H/O right breast biopsy Breast cancer 2010 H/O endoscopy H/O colostomy 06/2020 Reversal was in 2021 H/O colonoscopy History of ankle surgery Left Ankle: Hx laparoscopic cholecystectomy 1982 H/O abdominal hysterectomy 1975 History of permanent cardiac pacemaker placement x3 Social History Social History Smoking Status: Never smoker Do you vape?: No Do you feel safe in your home environment?: Yes History of physical, verbal, emotional, or financial abuse?: No Frequency: Daily Number of drinks/day: 1 POLST Patient has POLST: No Review of Systems Status of ROS: 10 or more systems reviewed and unremarkable except as noted in history and below Exam Exam Vital Signs: Vital Signs x48h Temp Pulse Resp BP Pulse Ox 03/29/25 20:17 75 22 88 L 03/29/25 20:15 36.6 C 73 20 150/86 H 90 L Examination as recorded is based on patient and staff reported information as well as peripheral observation. Constitutional normal general appearance and distress noted Eyes PERRL Respiratory breath sounds equal bilaterally and abnormal respiratory effort Cardiovascular normal heart rate noted Extremities tenderness noted and full ROM pitting edema Conclusion/Plan Problem List (1) Acute CHF (congestive heart failure): Plan: acute on chronic decompensated heart failure. h/o HFpEF, EF 55% ECHO September 2024 -chest xray reveiwed. pulmonary edema, bnp elevated -will initiate diuresis with lasix 20mg IV bid -fluid restriction 1500cc /day -repeat echo limited for evalation of ventricular function -strict I and o -daily weight -telemetry -resume aspirin, statin, HCTZ (2) Atrial fibrillation, permanent: Plan: home medication reviwed -resume eliquis -resume metoloprolol -monitor and replace electrolytes (3) Acute respiratory failure: Plan: secondary to decompensated heart failure -continue with supplemental oxygen, 2L NC. Not on oxygen at home -monitor vitals -repeat chest xray and obtain ABG as needed for optimized medical management Plan Patient will be admitted to the hospitalist service under inpatient status. less than 2 midnights expected for management. Lab Results Lab results reviewed: Yes 03/29/25 20:37 03/29/25 20:37 Diagnostic Imaging Results Diagnostic Imaging Results: positive Final report reviewed Core Measures Anticipated LOS I expect patient to be DC'd or transferred within 96 hours.: Yes DVT/VTE - Prophylaxis VTE/DVT Device ordered at admit?: Yes
[2025-03-29 21:52] LABS: GLUCOSE, URINE (UA) NEGATIVE (NEGATIVE); KETONES,URINE (UA) NEGATIVE (NEGATIVE); OCCULT BLOOD,URINE TRACE (NEGATIVE)
[2025-03-29 21:53] LABS: SQUAMOUS EPITHELIAL CELL,UR FEW Squamous (<= Few)
--- OUTSIDE RECORDS SUMMARY | 2025-03-29 22:04 | EXTERNAL MEDICAL SUMMARY RPT | Continuity of Care Document ---
Author Organization [place] Address [address] [place] [id number] Phone Problems date description facility 2024-12-29 09:35 Nonrheumatic aortic (valve) [facility] 2024-12-29 09:36 Nonrheumatic aortic (valve) [facility] 2024-12-30 00:03 Nonrheumatic aortic (valve) [facility] 2024-12-30 10:59 Nonrheumatic aortic (valve) [facility] 2025-01-20 14:45 Urinary tract infection, site n ot specified [facility] 2025-01-21 00:06 Urinary tract infection, site n ot specified [facility] 2025-01-24 11:20 Procedure and treatm ent not carried out due to patient leaving prior to being seen by health care provider [facility] 2025-01-25 14:12 Urinary tract infection, site n ot specified [facility] 2025-02-28 06:17 Chest pain, unspecified [facility] 2025-02-28 06:32 Chest pain, unspecified [facility] 2025-03-02 09:57 Other chest pain [facility] 2025-03-02 09:57 Chest pain, unspecified [facility] 2025-03-03 15:34 Other chest pain [facility] 2025-03-20 22:55 Pain in thoracic spine [facility] 2025-03-20 22:55 Cough, unspecified [facility] 2025-03-20 22:55 Dyspnea, unspecified [facility] 2025-03-24 09:10 Pain in thoracic spine [facility] 2025-03-24 09:10 Cough, unspecified [facility] 2025-03-24 09:10 Dyspnea, unspecified [facility] 2025-03-24 09:10 Other forms of dyspnea [facility] 2025-03-24 09:10 Other specified symp toms and signs involving the circulatory and respiratory systems [facility] 2025-03-24 11:02 Shortness of breath Alexa Cobos [facility] 2025-03-29 21:29 [facility] failure, unspecified [facility] Results/Labs test date facility value unit notes Result panel 1 NUCLEATED RED BLOOD CELLS AUTO 2024-12-29 09:53 [facility] 0.0 /100wbc (missing) BASOPHILS # (AUTO) 2024-12-29 09:53 [facility] 0.0 10 3/ul (missing) NRBC ABSOLUTE COUNT (AUTO) 2024-12-29 09:53 [facility] 0.00 x10 3/ul (missing) EOSINOPHILS # (AUTO) 2024-12-29 09:53 [facility] 0.1 10 3/ul (missing) CREATININE 2024-12-29 09:53 [facility] 0.6 mg/dl As of October 2022 testing method has changed, this may include reference ranges. MONOCYTES # (AUTO) 2024-12-29 09:53 [facility] 0.8 10 3/ul (missing) LYMPHOCYTES # (AUTO) 2024-12-29 09:53 [facility] 0.8 10 3/ul (missing) MEAN CORPUSCULAR VOLUME 2024-12-29 09:53 [facility] 104.4 fl (missing) HGB - HEMOGLOBIN 2024-12-29 09:53 [facility] 12.8 g /dl (missing) GLUCOSE 2024-12-29 09:53 [facility] 122 mg/dl As of October 2022 testing method has changed, this may include reference ranges. SODIUM 2024-12-29 09:53 [facility] 133 mmol/l (missing) RED CELL DISTRIBUTION WIDTH 2024-12-29 09:53 [facility] 14.9 % (mi ssing) PLT - PLATELET COUNT 2024-12-29 09:53 [facility] 195 10 3/ul (missing) RED BLOOD COUNT 2024-12-29 09:53 [facility] 3.63 10 6/ul (missing) CARBON DIOXIDE - CO2 2024-12-29 09:53 [facility] 30 mmol/l As of October 2022 testing method has changed, this may include reference ranges. MEAN CORPUSCULAR HGB CONC 2024-12-29 09:53 [facility] 33.8 g/dl (missing) MEAN CORPUSCULAR HEMOGLOBIN 2024-12-29 09:53 [facility] 35.3 pg (missing) HCT - HEMATOCRIT 2024-12-29 09:53 [facility] 37.9 % (missing) POTASSIUM 2024-12-29 09:53 [facility] 4.2 mmol/l As of October 2022 testing method has changed, this may include reference ranges. NEUTROPHILS # (AUTO) 2024-12-29 09:53 [facility] 5.6 10 3/ul (missing) ANION GAP 2024-12-29 09:53 [facility] 6.0 (missing ) (missing) WHITE BLOOD COUNT 2024-12-29 09:53 [facility] 7.3 x10 3/ul (missing) BUN - BLOOD UREA NITROGEN 2024-12-29 09:53 [facility] 8 mg/dl As of Oct testing method has changed, this may include reference ranges. CALCIUM 2024-12-29 09:53 [facility] 9.3 mg/dl As of October 2022 testing method has changed, this may include reference ranges. MEAN PLATELET VOLUME 2024-12-29 09:53 [facility] 9.6 fl (missing) GFR - MDRD 2024-12-29 09:53 [facility] 94 (missin g) The IDMS-traceable MDRD Study [...] last updated June 2011. CHLORIDE 2024-12-29 09:53 [facility] 97 mmol/l As of October 2022 testing [...] 0.5 (missing) (missing) CUL, URINE 2025-01-20 14:12 [facility] 100>100,000 CFU/mL (missing) (missing) TOBRAMYCIN 2025-01-20 14:12 [facility] 8 (missing) (missing) O:ESCCOL 2025-01-20 14:12 [facility] ESCCOLESCHERICHIA COLIESCHERICHIA COLI (missing) (missing) CUL, URINE 2025-01-20 14:12 [facility] GNRGRAM NEGATIVE NICHELLE TO BE FURTHER IDENTIFIED (missing) (missing) CUL, URINE 2025-01-20 14:12 [facility] IDMIC.1ORG 1 ID/DEAN COM* (missing) (missing) CUL, URINE 2025-01-20 14:12 [facility] ORG.1PRELIM ORG ID* (missing) (missing) CUL, URINE 2025-01-20 14:12 [facility] C.1ORG 1 CC* (missing) (missing) CUL, URINE 2025-01-20 14:12 [facility] UCC.6COLONY COUNT (missing) (missing) CUL, URINE 2025-01-20 14:12 [facility] YIDENTIFICATION AND SENSITIVITIES TO FOLLOW (missing) (missing) Result panel 3 NUCLEATED RED BLOOD CELLS AUTO 2025-02-28 05:09 [facility] 0.0 /100wbc (missing) BASOPHILS # (AUTO) 2025-02-28 05:09 [facility] 0.0 10 3/ul (missing) NRBC ABSOLUTE COUNT (AUTO) 2025-02-28 05:09 [facility] 0.00 x10 3/ul (missing) EOSINOPHILS # (AUTO) 2025-02-28 05:09 [facility] 0.1 10 3/ul (missing) MONOCYTES # (AUTO) 2025-02-28 05:09 [facility] 0.4 10 3/ul (missing) CREATININE 2025-02-28 05:09 [facility] 0.5 mg/dl As of October 2022 testing method has changed, this may include reference ranges. LYMPHOCYTES # (AUTO) 2025-02-28 05:09 [facility] 0.7 10 3/ul (missing) BILIRUBIN,TOTAL 2025-02-28 05:09 [facility] 0.8 mg/dl As of October 2022 testing method has changed, this may include reference ranges. ALBUMIN/GLOBULIN RATIO 2025-02-28 05:09 [facility] 1.3 (missing) (missing) CHLORIDE 2025-02-28 05:09 [facility] 100 mmol/l As of October 2022 testing method has changed, this may include reference ranges. MEAN CORPUSCULAR VOLUME 2025-02-28 05:09 [facility] 104.5 fl (missing) GFR - MDRD 2025-02-28 05:09 [facility] 116 (missing) The IDMS-traceable MDRD Study Equation [...] last updated June 2011. GLUCOSE 2025-02-28 05:09 [facility] 116 mg/dl As of October 2022 testing method has changed, this may include reference ranges. ALT ALANINE AMINOTRANSFERASE 2025-02-28 05:09 [facility] 12 iu/l As of October 2022 testing method has changed, this may include reference ranges. HGB - HEMOGLOBIN 2025-02-28 05:09 [facility] 12.7 g/dl (missing) SODIUM 2025-02-28 05:09 [facility] 134 mmol/l (missing) RED CELL DISTRIBUTION WIDTH 2025-02-28 05:09 [facility] 15.2 % (missing) PLT - PLATELET COUNT 2025-02-28 05:09 [facility] 167 10 3/ul (missing) GLOBULIN 2025-02-28 05:09 [facility] 2.7 g/dl (missing) AST ASPARTATE AMINOTRANSFERASE 2025-02-28 05:09 [facility] 23 iu/l As of October 2022 testing method has changed, this may include reference ranges. CARBON DIOXIDE - CO2 2025-02-28 05:09 [facility] 27 mmol/l As of October 2022 testing method has changed, this may include reference ranges. ALBUMIN 2025-02-28 05:09 [facility] 3.5 g/dl As of October 2022 testing method has changed, this may include reference ranges. RED BLOOD COUNT 2025-02-28 05:09 [facility] 3.55 10 6/ul (missing) POTASSIUM 2025-02-28 05:09 [facility] 3.6 mmol/l As of October 2022 testing method has changed, this may include reference ranges. MEAN CORPUSCULAR HGB CONC 2025-02-28 05:09 [facility] 34.2 g/dl (missing) MEAN CORPUSCULAR HEMOGLOBIN 2025-02-28 05:09 [facility] 35.8 pg (missing) HCT - HEMATOCRIT 2025-02-28 05:09 [facility] 37.1 % (missing) NEUTROPHILS # (AUTO) 2025-02-28 05:09 [facility] 4.8 10 3/ul (missing) BUN - BLOOD UREA NITROGEN 2025-02-28 05:09 [facility] 5 mg/dl As of October 2022 testing method has changed, this may include reference ranges. WHITE BLOOD COUNT 2025-02-28 05:09 [facility] 6.0 x10 3/ul (missing) TOTAL PROTEIN 2025-02-28 05:09 [facility] 6.2 g/dl As of October 2022 testing method has changed, this may include reference ranges. ANION GAP 2025-02-28 05:09 [facility] 7.0 (missing) (missing) CALCIUM 2025-02-28 05:09 [facility] 8.7 mg/dl As of October 2022 testing method has changed, this may include reference ranges. TROPONIN I HIGH SENSITIVITY 2025-02-28 05:09 [facility] 8.8 ng/l A HIGH SENSITIVITY TROPONIN result of >= 14.9 ng/L for females is considered POSITIVE. A HIGH SENSITIVITY TROPONIN result of >= 19.8 ng/L for males is considered POSITIVE. A HIGH SENSITIVITY TROPONIN result of >= 17.9 ng/L for unspecified is considered POSITIVE. MEAN PLATELET VOLUME 2025-02-28 05:09 [facility] 9.9 fl (missing) ALKALINE PHOSPHATASE 2025-02-28 05:09 [facility] 90 iu/l As of October 2022 testing method has changed, this may include reference ranges. Result panel 4 NUCLEATED RED BLOOD CELLS AUTO 2025-03-20 21:00 [facility] 0.0 /100wbc (missing) NRBC ABSOLUTE COUNT (AUTO) 2025-03-20 21:00 [facility] 0.00 x10 3/ul (missing) BASOPHILS # (AUTO) 2025-03-20 21:00 [facility] 0.1 10 3/ul (missing) EOSINOPHILS # (AUTO) 2025-03-20 21:00 [facility] 0.3 10 3/ul (missing) CREATININE 2025-03-20 21:00 [facility] 0.5 mg/dl As of October 2022 testing method has changed, this may include reference ranges. MONOCYTES # (AUTO) 2025-03-20 21:00 [facility] 0.6 10 3/ul (missing) LYMPHOCYTES # (AUTO) 2025-03-20 21:00 [facility] 0.6 10 3/ul (missing) BILIRUBIN,TOTAL 2025-03-20 21:00 [facility] 0.6 mg/dl As of October 2022 testing method has changed, this may include reference ranges. ALBUMIN/GLOBULIN RATIO 2025-03-20 21:00 [facility] 1.3 (missing) (missing) MEAN CORPUSCULAR VOLUME 2025-03-20 21:00 [facility] 105.7 fl (missing) ALKALINE PHOSPHATASE 2025-03-20 21:00 [facility] 108 iu/l As of October 2022 testing method has changed, this may include reference ranges. LIPASE 2025-03-20 21:00 [facility] 11 u/l As of October 2022 testing method has changed, this may include reference ranges. HGB - HEMOGLOBIN 2025-03-20 21:00 [facility] 11.3 g/dl (missing) GFR - MDRD 2025-03-20 21:00 [facility] 116 (missing) The IDMS-traceable MDRD Study Equation [...] last updated June 2011. ALT ALANINE AMINOTRANSFERASE 2025-03-20 21:00 [facility] 13 iu/l As of October 2022 testing method has changed, this may include reference ranges. SODIUM 2025-03-20:00 [facility] 132 mmol/l (missing) GLUCOSE 2025-03-20: [facility] 134 mg/dl As of October 2022 testing method has changed, this may include reference ranges. RED CELL DISTRIBUTION WIDTH 2025-03-20: [facility] 14.8 % (missing) PLT - PLATELET COUNT 2025-03-20 21:00 [facility] 178 10 3/ul (missing) GLOBULIN 2025-03-20 21:00 [facility] 2.6 g/dl (missing) AST ASPARTATE AMINOTRANSFERASE 2025-03-20: [facility] 21 iu/l As of October 2022 testing method has changed, this may include reference ranges. CARBON DIOXIDE - CO2 2025-03-20: [facility] 29 mmol/l As of October 2022 testing method has changed, this may include reference ranges. RED BLOOD COUNT 2025-03-20: [facility] 3.14 10 6/ul (missing) ALBUMIN 2025-03-20: [facility] 3.3 g/dl As of October 2022 testing method has changed, this may include reference ranges. POTASSIUM 2025-03-20: [facility] 3.8 mmol/l As of October 2022 testing method has changed, this may include reference ranges. HCT - HEMATOCRIT 2025-03-20: [facility] 33.2 % (missing) MEAN CORPUSCULAR HGB CONC 2025-03-20: [facility] 34.0 g/dl (missing) MEAN CORPUSCULAR HEMOGLOBIN 2025-03-20:00 [facility] 36.0 pg (missing) TOTAL PROTEIN 2025-03-20: [facility] 5.9 g/dl As of October 2022 testing method has changed, this may include reference ranges. ANION GAP 2025-03-20:00 [facility] 6.0 (missing) (missing) NEUTROPHILS # (AUTO) 2025-03-20:00 [facility] 6.6 10 3/ul (missing) BUN - BLOOD UREA NITROGEN 2025-03-20 21:00 [facility] 7 mg/dl As of October 2022 testing method has changed, this may include reference ranges. WHITE BLOOD COUNT 2025-03-20 21:00 [facility] 8.1 x10 3/ul (missing) CALCIUM 2025-03-20 21:00 [facility] 8.6 mg/dl As of October 2022 testing method has changed, this may include reference ranges. MEAN PLATELET VOLUME 2025-03-20 21:00 [facility] 9.5 fl (missing) CHLORIDE 2025-03-20 21:00 [facility] 97 mmol/l As of October 2022 testing method has changed, this may include reference ranges. Result panel 5 CASTS, URINE 2025-03-20 21:45 [facility] 0-2 Hyaline Casts /lpf (missing) WBC,URINE 2025-03-20 21:45 [facility] 0-3 /hpf (missing) RBC,URINE 2025-03-20 21:45 [facility] 0-5 /hpf (missing) UROBILINOGEN,URI NE 2025-03-20 21:45 [facility] 0.2 (NORMAL) e.u./dl (missing) SPECIFIC GRAVITY,URINE 2025-03-20 21:45 [facility] 1.020 (missing) (missing) PH,URINE 2025-03-20:45 [facility] 6.0 ph (missing) CLARITY,URINE 2025-03-20:45 [facility] CLEAR (missing) (missing) SQUAMOUS EPITHELIAL CELL,UR 2025-03-20 21:45 [facility] FEW Squamous (missing) (missing) LEUKOCYTE ESTERASE, URINE 2025-03-20:45 [facility] NEGATIVE (missing) (missing) NITRITE,URINE 2025-03-20:45 [facility] NEGATIVE (missing) (missing) BILIRUBIN,URINE 2025-03-20 21:45 [facility] NEGATIVE (missing) Bilirubin can be influenced by color interference. Please correlate positive results with clinical presentation GLUCOSE, URINE (UA) 2025-03-20 21:45 [facility] NEGATIVE mg/dl (missing) KETONES,URINE (UA) 2025-03-20 21:45 [facility] NEGATIVE mg/dl (missing) PROTEIN,URINE 2025-03-20 21:45 [facility] NEGATIVE mg/dl (missing) UR CULTURE IF IND 2025-03-20 21:45 [facility] NOT INDICATED (missing) (missing) BACTERIA,URINE 2025-03-20 21:45 [facility] None Seen /hpf (missing) OCCULT BLOOD,URINE 2025-03-20 21:45 [facility] TRACE-LYSED (missing) (missing) COLOR,URINE 2025-03-20:45 [facility] YELLOW (missing) URINE CATHETERIZED Result panel 6 NUCLEATED RED BLOOD CELLS AUTO 2025-03-29 20:37 [facility] 0.0 /100wbc (missing) BASOPHILS # (AUTO) 2025-03-29 20:37 [facility] 0.0 10 3/ul (missing) NRBC ABSOLUTE COUNT (AUTO) 2025-03-29 20:37 [facility] 0.00 x10 3/ul (missing) EOSINOPHILS # (AUTO) 2025-03-29 20:37 [facility] 0.1 10 3/ul (missing) CREATININE 2025-03-29 20:37 [facility] 0.5 mg/dl As of October 2022 testing method has changed, this may include reference ranges. LYMPHOCYTES # (AUTO) 2025-03-29 20:37 [facility] 0.6 10 3/ul (missing) BILIRUBIN,TOTAL 2025-03-29 20:37 [facility] 0.7 mg/dl As of October 2022 testing method has changed, this may include reference ranges. MONOCYTES # (AUTO) 2025-03-29 20:37 [facility] 0.9 10 3/ul (missing) ALBUMIN/GLOBULIN RATIO 2025-03-29 20:37 [facility] 1.1 (missing) (missing) MEAN CORPUSCULAR VOLUME 2025-03-29 20:37 [facility] 105.8 fl (missing) HGB - HEMOGLOBIN 2025-03-29 20:37 [facility] 11.7 g/dl (missing) GFR - MDRD 2025-03-29 20:37 [facility] 116 (missing) The IDMS-traceable MDRD Study Equation [...] ine-stand ardization, last updated June 2011. GLUCOSE 2025-03-29 20:37 [facility] 116 mg/dl As of October 2022 testing method has changed, this may include reference ranges. ALKALINE PHOSPHATASE 2025-03-29 20:37 [facility] 132 iu/l As of October 2022 testing method has changed, this may include reference ranges. SODIUM 2025-03-29 20:37 [facility] 132 mmol/l (missing) ALT ALANINE AMINOTRANSFERASE 2025-03-29 20:37 [facility] 15 iu/l As of October 2022 testing method has changed, this may include reference ranges. RED CELL DISTRIBUTION WIDTH 2025-03-29 20:37 [facility] 15.1 % (missing) ANION GAP 2025-03-29 20:37 [facility] 2.0 (missing) (missing) MAGNESIUM 2025-03-29 20:37 [facility] 2.1 mg/dl As of October 2022 testing method has changed, this may include reference ranges. GLOBULIN 2025-03-29 20:37 [facility] 2.8 g/dl (missing) PLT - PLATELET COUNT 2025-03-29 20:37 [facility] 218 10 3/ul (missing) AST ASPARTATE AMINOTRANSFERASE 2025-03-29 20:37 [facility] 24 iu/l As of October 2022 testing method has changed, this may include reference ranges. ALBUMIN 2025-03-29 20:37 [facility] 3.1 g/dl As of October 2022 testing method has changed, this may include reference ranges. RED BLOOD COUNT 2025-03-29 20:37 [facility] 3.27 10 6/ul (missing) CARBON DIOXIDE - CO2 2025-03-29 20:37 [facility] 32 mmol/l As of October 2022 testing method has changed, this may include reference ranges. MEAN CORPUSCULAR HGB CONC 2025-03-29 20:37 [facility] 33.8 g/dl (missing) HCT - HEMATOCRIT 2025-03-29 20:37 [facility] 34.6 % (missing) MEAN CORPUSCULAR HEMOGLOBIN 2025-03-29 20:37 [facility] 35.8 pg (missing) POTASSIUM 2025-03-29 20:37 [facility] 4.3 mmol/l As of October 2022 testing method has changed, this may include reference ranges. BNP - B-NATRIURETIC PEPTIDE 2025-03-29 20:37 [facility] 469 pg/ml (missing) TOTAL PROTEIN 2025-03-29:37 [facility] 5.9 g/dl As of October 2022 testing method has changed, this may include reference ranges. BUN - BLOOD UREA NITROGEN 2025-03-29 20:37 [facility] 7 mg/dl As of October 2022 testing method has changed, this may include reference ranges. NEUTROPHILS # (AUTO) 2025-03-29:37 [facility] 7.7 10 3/ul (missing) CALCIUM 2025-03-29:37 [facility] 8.4 mg/dl As of October 2022 testing method has changed, this may include reference ranges. WHITE BLOOD COUNT 2025-03-29 20:37 [facility] 9.3 x10 3/ul (missing) MEAN PLATELET VOLUME 2025-03-29 20:37 [facility] 9.5 fl (missing) CHLORIDE 2025-03-29:37 [facility] 98 mmol/l As of October 2022 testing method has changed, this may include reference ranges. Social History date description facility
[2025-03-29] MEDS ORDERED: ACETAMINOPHEN 325 MG TABLET PO PRN (23:11)
[2025-03-29] MEDS ORDERED: ONDANSETRON 4 MG/2 ML VIAL IVP PRN (23:11)
[2025-03-30] MEDS: SODIUM CHLORIDE FLUSH 0.9% 10 ML SYRINGE IVP SCH (00:42)
[2025-03-30] MEDS: oxyCODONE 5 MG TABLET PO PRN (02:25)
[2025-03-30] MEDS ORDERED: ZINC OXIDE 20% OINT 60 GM TUBE TP PRN (07:15)
--- NOTE | 2025-03-30 07:29 | PROVIDER PROGRESS NOTE ---
Subjective Prog Note Date Prog Note Date: 03/30/25 Prog Note Time: 07:26 Subjective Subjective: Patient was admitted overnight. She has findings on foot x-ray of age- indeterminate fracture of the base of fifth proximal phalanx, right foot. She is wearing a boot on the right foot. She has significant edema in bilateral feet. She has some dyspnea on exertion, but is improving at rest. Denies any cough, fevers/chills, abdominal pain, or dysuria. Otherwise being treated for heart failure exacerbation. She has a history of HFpEF. Aortic stenosis and severe calcification noted on her last echo from September. She is on 40 mg as needed daily Lasix. Unclear if she has been using it. Not on GDMT otherwise. Her family is quite overwhelmed with her medical care. [id number] They had many questions about her status and ongoing care. These were answered. Lasix dose adjusted today to 40 mg IV twice daily. Will monitor labs for 1 more day. Likely can discharge tomorrow. Current Medications Current Medications Current Medications: Current Medications Generic Name Dose Route Start Last Admin Trade Name Freq PRN Reason Stop Dose Admin Acetaminophen 650 mg 03/29/25 23:11 Acetaminophen 325 Mg Tablet PO Q4HR PRN Pain 1 to 4, or Fever Apixaban 10 mg 03/30/25 09:00 Apixaban 5 Mg Tablet PO DAILY MELANIE Dexamethasone 2 mg 03/30/25 09:00 Dexamethasone 4 Mg Tablet PO DAILY MELANIE Ferrous Sulfate 325 mg 03/30/25 09:00 Ferrous Sulfate 325 Mg Tablet PO DAILY MELANIE Folic Acid 1 mg 03/30/25 09:00 Folic Acid 1 Mg Tablet PO DAILY MELANIE Furosemide 20 mg 03/30/25 08:00 Furosemide 40 Mg/4 Ml Vial IVP BIDDIURETIC MELANIE Hydrochlorothiazide 25 mg 03/29/25 23:11 03/30/25 00:42 Hydrochlorothiazide 25 Mg Tablet PO 25 mg DAILY MELANIE Administration Hydroxychloroquine Sulfate 200 mg 03/30/25 09:00 Hydroxychloroquine 200 Mg Tablet PO BID MELANIE Isosorbide Mononitrate 30 mg 03/30/25 09:00 Isosorbide Mononitrate Er 30 Mg Tablet PO DAILY MELANIE Metoprolol Tartrate 50 mg 03/30/25 09:00 Metoprolol Tartrate 50 Mg Tablet PO BID MELANIE Multi-Ingredient Ointment 1 applic 03/30/25 07:15 Zinc Oxide 20% Oint 60 Gm Tube TP 6XD PRN skin irritation Nystatin 1 applic 03/30/25 09:00 Nystatin Powder 15 Gm TOP BID MELANIE Ondansetron HCl 4 mg 03/29/25 23:11 Ondansetron 4 Mg/2 Ml Vial IVP Q6HR PRN Nausea / Vomiting Oxycodone HCl 5 mg 03/29/25 23:11 03/30/25 02:25 Oxycodone 5 Mg Tablet PO 5 mg Q8H PRN Administration PAIN >8 Sodium Chloride 10 ml 03/29/25 23:11 Sodium Chloride Flush 0.9% 10 Ml Syringe IVP PRN PRN NEEDED PER PROVIDER ORDERS Sodium Chloride 10 ml 03/30/25 01:00 03/30/25 00:42 Sodium Chloride Flush 0.9% 10 Ml Syringe IVP 10 ml 0100,0900,1700 MELANIE Administration Tramadol HCl 50 mg 03/29/25 23:11 Tramadol 50 Mg Tablet PO TID PRN PAIN 5-7 Objective Vital Signs/Intake & Output Reviewed Vital Signs: Yes Vital Signs: Vital Signs x48h Temp Pulse Resp BP Pulse Ox 03/30/25 04:15 36.5 C 73 16 112/73 97 Intake & Output: Intake & Output 03/27/25 03/28/25 03/29/25 03/30/25 23:59 23:59 23:59 23:59 Output Total 300 / 300 1700 / 1700 Balance -300 / -300 -1700 / -1700 Weight (kg) 89 kg Objective Comments/Other: GEN: No acute distress HEENT: NC/AT, normal appearance of external ears and nose. Hearing baseline. Cardiac: Paced rhythm. Regular. Rate in the 70s. Grade 4/6 systolic ejection murmur. Pulm: Trace bibasilar rales. No cough or wheeze. Normal effort on 1 L NC Abdomen: Soft, nontender, nondistended. No rebound or guarding Extremities: 4+ pitting edema bilateral lower extremities up to the knee. Right foot is in a boot. Neuro: Face symmetric, CN II through XII intact grossly. No focal neurologic deficits. Psych: Mood euthymic with congruent affect. Reasonable insight. Lab Results 03/29/25 20:37 03/29/25 20:37 Other Labs: Lab Results x24hrs 03/29/25 03/29/25 Range/Units 21:21 20:37 WBC 9.3 (4.8-10.8) x10^3/uL RBC 3.27 L (4.20-5.40) 10^6/uL Hgb 11.7 L (12.0-16.0) g/dL Hct 34.6 L (37.0-47.0) % MCV 105.8 H (81.0-99.0) fL MCH 35.8 H (27.0-31.0) pg MCHC 33.8 (32.0-36.0) g/dL RDW 15.1 H (12.0-15.0) % Plt Count 218 (130-450) 10^3/uL MPV 9.5 (7.9-10.8) fL Neut # (Auto) 7.7 H (1.5-6.6) 10^3/uL Lymph # (Auto) 0.6 L (1.5-3.5) 10^3/uL [place] # (Auto) 0.9 (0.0-1.0) 10^3/uL Eos # (Auto) 0.1 (0.0-0.7) 10^3/uL Baso # (Auto) 0.0 (0.0-0.1) 10^3/uL Absolute Nucleated RBC 0.00 x10^3/uL Nucleated RBC % 0.0 /100WBC Sodium 132 L (135-145) mmol/L Potassium 4.3 (3.5-4.5) mmol/L Chloride 98 L (101-111) mmol/L Carbon Dioxide 32 (21-32) mmol/L Anion Gap 2.0 L (6-13) BUN 7 (6-20) mg/dL Creatinine 0.5 L (0.6-1.3) mg/dL Estimated GFR (MDRD) 116 (>89) Glucose 116 H (74-104) mg/dL Calcium 8.4 L (8.5-10.3) mg/dL Magnesium 2.1 (1.7-2.3) mg/dL Total Bilirubin 0.7 (0.2-1.0) mg/dL AST 24 (10-42) IU/L ALT 15 (10-60) IU/L Alkaline Phosphatase 132 H (42-121) IU/L B-Natriuretic Peptide 469 H (5-100) pg/mL Total Protein 5.9 L (6.4-8.9) g/dL Albumin 3.1 L (3.2-5.5) g/dL Globulin 2.8 (2.1-4.2) g/dL Albumin/Globulin Ratio 1.1 (1.0-2.2) Urine Color YELLOW Urine Clarity CLEAR (CLEAR) Urine pH 7.5 (5.0-7.5) PH Ur Specific [place] 1.010 (1.002-1.030) Urine Protein TRACE (NEGATIVE) mg/dL Urine Glucose (UA) NEGATIVE (NEGATIVE) mg/dL Urine Ketones NEGATIVE (NEGATIVE) mg/dL Urine Occult Blood TRACE (NEGATIVE) Urine Nitrite NEGATIVE (NEGATIVE) Urine Bilirubin NEGATIVE (NEGATIVE) Urine Urobilinogen 0.2 (NORMAL) (NORMAL) E.U./dL Ur Leukocyte Esterase SMALL H (NEGATIVE) Urine RBC 0-5 (0-5) /HPF Urine WBC 0-3 (0-5) /HPF Ur Squamous Epith Cells FEW Squamous (<= Few) Urine Bacteria Rare (None Seen) /HPF Ur Microscopic Review INDICATED Urine Culture Comments INDICATED Assessment/Plan Problem List (1) Acute CHF (congestive heart failure): Qualifiers: Heart failure type: diastolic Qualified Code(s): I50.31 - Acute diastolic (congestive) heart failure (2) Acute respiratory failure: Impression: Improving. Weaning off of O2 this morning. Still with significant lower extremity edema. Potassium 4.3 this morning. Creatinine 0.5. Patient with known history of heart failure with preserved ejection fraction. She is on Lasix 20 mg as needed at home. She has not been using this much. She is unsure what her dry weight is. She does not tend to follow a sodium restricted diet. She said multiple exacerbations, this is the first prompting admission per her recollection. Echo from earlier this year reveals EF 55 to 60%. Moderate to severe mitral regurgitation, severe aortic stenosis, aortic peak velocity of 410 cm/s, mean pressure gradient of 42 mmHg. - Wean O2 as tolerated, goal sat > 92% - TTE, may not happen until tomorrow - Continue IV diuresis 40 mg twice daily - Telemetry while actively diuresing - Needs o/p f/u with cardiology, consideration for TAVR - Follow BMP a.m. - Daily weights, strict I/O - Sodium restricted diet, 3 to 4 g - Defer fluid restriction at this time - PT to evaluate - Home health has been ordered Qualifiers: Respiratory failure complication: hypoxia Qualified Code(s): J96.01 - Acute respiratory failure with hypoxia (3) Atrial fibrillation, permanent: Impression: Patient with a history of persistent longstanding atrial fibrillation. She has a pacer/ICD in place. Her rhythm on telemetry is paced. Home medications include metoprolol tartrate 50 mg twice daily and Eliquis 5 mg p.o. twice daily - Continue Eliquis 5 mg p.o. twice daily - Transition to Toprol-XL will start with 50 mg - Needs outpatient follow-up with cardiology as above (4) Acute right-sided thoracic back pain: Impression: Patient says she injured herself almost a month ago. She was seen in the ED on 02/28. She is unsure what prompted her initial injury, she and says she was sitting at the time of her initial injury. Her ED workup was unremarkable. Chest x-ray at that time was unremarkable. Cardiac enzymes were normal. She has had persistent right thoracic chest wall pain since February. Unrelieved by lidocaine patches. She has been using oral narcotics. She was able to take a oxycodone 5 mg prior to sleep last night and did not have any exacerbating symptoms overnight. She had chest x-ray on admission on 03/29 which revealed volume overload as above. - Continue lidocaine patch - Family is considering pursuing medical marijuana after discharge - Continue oxycodone 5 mg as needed (5) Rheumatoid arthritis: Impression: Known history. She is on Plaquenil 200 mg twice daily. She also takes methotrexate 40 mg weekly with daily folic acid 2 mg. No evidence of acute infection. - Continue folic acid 2 mg daily - Continue Plaquenil 200 mg twice daily - Resume methotrexate at discharge
[2025-03-30] MEDS: METOPROLOL SUCCINATE 50 MG TABLET PO SCH (08:08)
[2025-03-30] MEDS: HYDROXYCHLOROQUINE 200 MG TABLET PO SCH (08:08)
[2025-03-30] MEDS: FERROUS SULFATE 325 MG TABLET PO SCH (08:09)
[2025-03-30] MEDS: APIXABAN 5 MG TABLET PO SCH (08:09)
[2025-03-30] MEDS: FOLIC ACID 1 MG TABLET PO SCH (08:09)
[2025-03-30] MEDS: ISOSORBIDE MONONITRATE ER 30 MG TABLET PO SCH (08:09)
[2025-03-30] MEDS: NYSTATIN POWDER 15 GM TOP SCH (08:09)
[2025-03-30] MEDS: FUROSEMIDE 40 MG/4 ML VIAL IVP SCH (08:14)
[2025-03-30] MEDS ORDERED: MICONAZOLE CREAM 118 ML TUBE TOP SCH (09:00)
[2025-03-30] MEDS ORDERED: METOPROLOL TARTRATE 50 MG TABLET PO SCH (09:00)
[2025-03-30] MEDS ORDERED: FUROSEMIDE 40 MG/4 ML VIAL IVP SCH (09:00)
--- NOTE | 2025-03-30 10:43 | PHARMACY PROGRESS NOTE ---
Best Possible Medication History Admit Date and Time: 03/29/252124 Home Medications Medication Instructions Recorded Confirmed Type apixaban 5 mg tablet (Eliquis) 5 mg PO BID 10/08/23 History isosorbide mononitrate 30 mg 30 mg PO DAILY 10/08/23 1 05/31/24 History tablet,extended release 24 hr metoprolol tartrate 50 mg tablet 50 mg PO BID 10/08/23 03/30/25 History cranberry fruit concentrate 250 mg 250 mg PO TID 07/1503/30/25 History chewable tablet (Azo Cranberry) d-mannose 500 mg capsule (AZO 500 mg PO DAILY 07/15/24 03/30/25 History D-Mannose) folic acid 1 mg tablet 2 mg PO DAILY 07/15/2403/30 History hydroxychloroquine 200 mg tablet 200 mg PO BID Rheumat oid arthritis 03/03/25 03/30/25 Rx 30 days #60 tabs albuterol sulfate 90 mcg/actuation 2 puff inhalation Q ID PRN 03/20/25 03/30/25 Rx aerosol inhaler (Ventolin HFA) shortness of breath or wheezing #6.7 grams furosemide 20 mg tablet 20 mg PO DAILY PRN weight ga in 03/30/25 03/30/25 History methotrexate sodium 10 mg tablet 40 mg PO QWEEK Rheuma toid arthritis 03/30/25 03/30/25 History pyridoxine (vitamin B6) 1 tab PO DAILY 03/30/2503/21 History vitamin b12 1 dose PO DAILY 03/30/2502/12 History Processed by: Pharmacy Medications reviewed in ED?: Yes Medication History completed: Yes Patient Interview: Completed Secondary Source(s): Insurance records [facility] Statement: As the person ultimately responsible for medication therapy, providers are able to order a medication from an existing home medication list in [facility] via the "Reconcile Routine" prior to Confirmation of that medication by data support analyst. Such practice is discouraged except when the physician, in their clinical j udgment, deems that a medical need exists for a medication without regard to previous use.
[2025-03-30] MEDS: FUROSEMIDE 20 MG/2 ML VIAL IVP SCH (14:16)
--- NOTE | 2025-03-30 14:31 | PT Plan of Care ---
PT Plan of Care Physical Therapy Plan of Care: Diagnosis Diagnosis acute CHF exacerbation Referring Provider Williams Segura Patient Status Inpatient Chief Complaint Chief Complaint weakness, pain Onset of Chief Complaint approx 1 week [employer] Medical History (Updated 03/30/25 @ 11:27 by Williams Segura, DO) History of chemotherapy Cataract, left eye Colon polyps Fistula Osteoarthritis HLD (hyperlipidemia) Aortic stenosis CAD (coronary artery disease) Sepsis Heart failure Pacemaker Anemia Hypertension Surgical History (Updated 03/30/25 @ 03:02 by Evelin Logan RN) History of lymph node excision right axilla History of back surgery History of tonsillectomy and adenoidectomy H/O right breast biopsy Breast cancer 2010 H/O endoscopy H/O colostomy 06/2020 Reversal was in 2021 H/O colonoscopy History of ankle surgery Left Ankle: Right Ankle Hx laparoscopic cholecystectomy 1982 H/O abdominal hysterectomy 1975 History of permanent cardiac pacemaker placement x3 Balance/ Functional Results Sitting Balance Good Standing Balance Unable Assessment Assessment Pt is a pleasant 89yo F referred for PT eval d/t limited mobility, SOA, and significant BLE edema. Of note, R foot 5th met fx, pt in offloading boot, WBAT per MD. Cleared for eval by hospitalist. Upon PT eval, pt reports moderate to severe systemic pain d/t h/o RA but willing to participate. Transfers to EOB with CGA to minAx1. Good seated balance and no adverse symptoms aside from pain. SpO2 93% or higher on RA. Pt unable to stand d/t pain but willing to trial standing tomorrow. Anticipate she will need modAx1 for standing and may be limited to stand pivot transfer vs short distance walking. Given above impairments, pt will benefit from skilled PT in acute setting to progress functional mobility and restore PLOF. When medically clear, PT rec dc home with HHPT/ OT/bathaide as pt is near baseline, has good setup and supportive family. Goals Improve bed mobility to: Modified Independent Improve supine to sit to: Modified Independent Improve sit to stand to: Moderate Assist Improve pivot transfer ability Moderate Assist to: Improve sit to supine to: Modified Independent Improve gait ability to: Mod A Assistive Device Used: Front Wheeled Walker PT Plan of Care Frequency 1-2x/day Duration Until discharge Discharge Recommendations Discharge Location Previous Living Situation Support/Services Needed Home Health P.T. Transport Needs at Discharge Personal vehicle
[2025-03-30] MEDS: LACTATED RINGERS 500 ML IV ONE (17:41)
[2025-03-31] MEDS: SODIUM CHLORIDE FLUSH 0.9% 10 ML SYRINGE IVP PRN (04:45)
[2025-03-31 05:45] LABS: HCT - HEMATOCRIT 30.6 % (37.0-47.0); HGB - HEMOGLOBIN 9.9 g/dL (12.0-16.0); MEAN PLATELET VOLUME 9.2 fL (7.9-10.8); NRBC ABSOLUTE COUNT (AUTO) 0.00 x10^3/uL; NUCLEATED RED BLOOD CELLS AUTO 0.0 /100WBC; PLT - PLATELET COUNT 169 10^3/uL (130-450); RED CELL DISTRIBUTION WIDTH 15.2 % (12.0-15.0)
[2025-03-31 06:06] LABS: BUN - BLOOD UREA NITROGEN 9.0 mg/dL (6-20); CARBON DIOXIDE - CO2 33.0 mmol/L (21-32); CREATININE 0.6 mg/dL (0.6-1.3); GFR - MDRD 94.0 (>89)
--- NOTE | 2025-03-31 07:03 | PROVIDER PROGRESS NOTE ---
Subjective Prog Note Date Prog Note Date: 03/31/25 Prog Note Time: 07:00 Subjective Subjective: No acute events overnight. Patient had an episode of transient hypotension yesterday, suspected she was being overdiuresed. I did end up giving her back 500 mL of IV fluid late yesterday. Blood pressure this morning is robust. Net output of 710 mL yesterday. 2.2 L out total. To reduce edema in her bilateral lower extremities. She feels more ready to try and mobilize today. Unfortunately PT is out today. Patient denies any chest pain, dyspnea, abdominal pain, nausea or vomiting. Denies any dysuria. Denies dizziness or lightheadedness. Current Medications Current Medications Current Medications: Current Medications Generic Name Dose Route Start Last Admin Trade Name Freq PRN Reason Stop Dose Admin Acetaminophen 650 mg 03/29/25 23:11 Acetaminophen 325 Mg Tablet PO Q4HR PRN Pain 1 to 4, or Fever Apixaban 5 mg 03/30/25 09:00 03/30/25 21:28 Apixaban 5 Mg Tablet PO 5 mg BID MELANIE Administration Ferrous Sulfate 325 mg 03/30/25 09:00 03/30/25 08:09 Ferrous Sulfate 325 Mg Tablet PO 325 mg DAILY MLEANIE Administration Folic Acid 2 mg 03/31/25 09:00 Folic Acid 1 Mg Tablet PO DAILY MELANIE Furosemide 20 mg 03/30/25 14:00 03/31/25 04:44 Furosemide 20 Mg/2 Ml Vial IVP 20 mg BIDDIURETIC MELANIE Administration Hydroxychloroquine Sulfate 200 mg 03/30/25 09:00 03/30/25 21:28 Hydroxychloroquine 200 Mg Tablet PO 200 mg BID MELANIE Administration Isosorbide Mononitrate 30 mg 03/30/25 09:00 03/30/25 08:09 Isosorbide Mononitrate Er 30 Mg Tablet PO 30 mg DAILY MELANIE Administration Metoprolol Succinate 50 mg 03/30/25 09:00 03/30/25 08:08 Metoprolol Succinate 50 Mg Tablet PO 50 mg DAILY MELANIE Administration Multi-Ingredient Ointment 1 applic 03/30/25 07:15 Zinc Oxide 20% Oint 60 Gm Tube TP 6XD PRN skin irritation Nystatin 1 applic 03/30/25 09:00 03/30/25 21:33 Nystatin Powder 15 Gm TOP 1 applic BID MELANIE Administration Ondansetron HCl 4 mg 03/29/25 23:11 Ondansetron 4 Mg/2 Ml Vial IVP Q6HR PRN Nausea / Vomiting Oxycodone HCl 5 mg 03/29/25 23:11 03/30/25 22:49 Oxycodone 5 Mg Tablet PO 5 mg Q8H PRN Administration PAIN >8 Sodium Chloride 10 ml 03/29/25 23:11 03/31/25 04:45 Sodium Chloride Flush 0.9% 10 Ml Syringe IVP 10 ml PRN PRN Administration NEEDED PER PROVIDER ORDERS Sodium Chloride 10 ml 03/30/25 01:00 03/31/25 00:14 Sodium Chloride Flush 0.9% 10 Ml Syringe IVP 10 ml 0100,0900,1700 MELANIE Administration Tramadol HCl 50 mg 03/29/25 23:11 03/30/25 18:41 Tramadol 50 Mg Tablet PO 50 mg TID PRN Administration PAIN 5-7 Objective Vital Signs/Intake & Output Reviewed Vital Signs: Yes Vital Signs: Vital Signs x48h Temp Pulse Resp BP Pulse Ox 03/31/25 04:47 36.4 C L 72 16 126/65 93 03/31/25 00:00 36.5 C 73 18 133/62 H 94 Intake & Output: Intake & Output 03/28/25 03/29/25 03/30/25 03/31/25 23:59 23:59 23:59 23:59 Intake Total 1340 / 1340 150 / 150 Output Total 300 / 300 3000 / 3000 900 / 900 Balance -300 / -300 -1660 / -1660 -750 / -750 Weight (kg) 89 kg Objective Comments/Other: GEN: No acute distress HEENT: NC/AT, normal appearance of external ears and nose. Hearing baseline. Cardiac: Paced rhythm. Regular rate and rhythm. Grade 4/6 systolic ejection murmur. Pulm: No adventitial lung sounds. No cough or wheeze. Normal effort on room air Abdomen: Soft, nontender, nondistended. No rebound or guarding Extremities: 2+ edema in the bilateral lower extremities. Beginning to show more skin wrinkles. Right foot is in a boot. Nontender on the lateral aspect. Neuro: Face symmetric, CN II through XII intact grossly. No focal neurologic deficits. Psych: Mood euthymic with congruent affect. Reasonable insight. Lab Results 03/31/25 05:23 03/31/25 05:23 Other Labs: Lab Results x24hrs 03/31/25 Range/Units 05:23 WBC 7.1 (4.8-10.8) x10^3/uL RBC 2.84 L (4.20-5.40) 10^6/uL Hgb 9.9 L (12.0-16.0) g/dL Hct 30.6 L (37.0-47.0) % MCV 107.7 H (81.0-99.0) fL MCH 34.9 H (27.0-31.0) pg MCHC 32.4 (32.0-36.0) g/dL RDW 15.2 H (12.0-15.0) % Plt Count 169 (130-450) 10^3/uL MPV 9.2 (7.9-10.8) fL Neut # (Auto) 5.0 (1.5-6.6) 10^3/uL Lymph # (Auto) 1.1 L (1.5-3.5) 10^3/uL [place] # (Auto) 0.8 (0.0-1.0) 10^3/uL Eos # (Auto) 0.2 (0.0-0.7) 10^3/uL Baso # (Auto) 0.0 (0.0-0.1) 10^3/uL Absolute Nucleated RBC 0.00 x10^3/uL Nucleated RBC % 0.0 /100WBC Sodium 134 L (135-145) mmol/L Potassium 3.6 (3.5-4.5) mmol/L Chloride 97 L (101-111) mmol/L Carbon Dioxide 33 H (21-32) mmol/L Anion Gap 4.0 L (6-13) BUN 9 (6-20) mg/dL Creatinine 0.6 (0.6-1.3) mg/dL Estimated GFR (MDRD) 94 (>89) Glucose 89 (74-104) mg/dL Calcium 8.1 L (8.5-10.3) mg/dL Magnesium 1.9 (1.7-2.3) mg/dL Assessment/Plan Problem List (1) Acute CHF (congestive heart failure): Qualifiers: Heart failure type: diastolic Qualified Code(s): I50.31 - Acute diastolic (congestive) heart failure (2) Acute respiratory failure: Impression: Continues to improve. Net output of 700 yesterday. No longer on a fluid restriction. Lower extremity edema is improving. K remains stable at 3.6. Creatinine intervally 0.5 > 0.6. Patient with known history of heart failure with preserved ejection fraction. She is on Lasix 20 mg as needed at home. She has not been using this much. She is unsure what her dry weight is. She does not tend to follow a sodium restricted diet. She said multiple exacerbations, this is the first prompting admission per her recollection. Echo from earlier this year reveals EF 55 to 60%. Moderate to severe mitral regurgitation, severe aortic stenosis, aortic peak velocity of 410 cm/s, mean pressure gradient of 42 mmHg. Not on GDMT for HFpEF. Not on Aldactone or SGLT2i - Follow-up TTE, Qualitatively appears normal - Continue IV diuresis 40 mg twice daily - Starting Aldactone 25 mg daily today - Telemetry while actively diuresing - Needs o/p f/u with cardiology, consideration for TAVR - Repeat BMP in the morning - Daily weights, strict I/O - Sodium restricted diet, 3 to 4 g - PT to evaluate - Home health has been ordered Qualifiers: Respiratory failure complication: hypoxia Qualified Code(s): J96.01 - Acute respiratory failure with hypoxia (3) Atrial fibrillation, permanent: Impression: Patient with a history of persistent longstanding atrial fibrillation. She has a pacer/ICD in place. Her rhythm on telemetry is paced. Home medications include metoprolol tartrate 50 mg twice daily and Eliquis 5 mg p.o. twice daily - Continue Eliquis 5 mg p.o. twice daily - Continue Toprol-XL 50 mg daily, new med at discharge - Needs outpatient follow-up with cardiology as above (4) Acute right-sided thoracic back pain: Impression: Stable to improving back pain. Still limits her ambulation somewhat. No red flag signs. No bowel or bladder incontinence. Patient says she injured herself almost a month ago. She was seen in the ED on 02/28. She is unsure what prompted her initial injury, she and says she was sitting at the time of her initial injury. Her ED workup was unremarkable. Chest x-ray at that time was unremarkable. Cardiac enzymes were normal. She has had persistent right thoracic chest wall pain since February. Unrelieved by lidocaine patches. She has been using oral narcotics. She was able to take a oxycodone 5 mg prior to sleep last night and did not have any exacerbating symptoms overnight. She had chest x-ray on admission on 03/29 which revealed volume overload as above. - Will start multimodal pain relief, scheduled Tylenol 1 g 3 times daily, Heating pad as needed - Defer starting gabapentin annoyed as no clear neuropathic symptoms and considering age group - Continue lidocaine patch - Family is considering pursuing medical marijuana after discharge - Continue oxycodone 5 mg as needed (5) Rheumatoid arthritis: Impression: Known history. She is on Plaquenil 200 mg twice daily. She also takes methotrexate 40 mg weekly with daily folic acid 2 mg. No evidence of acute infection. - Continue folic acid 2 mg daily - Continue Plaquenil 200 mg twice daily - Resume methotrexate at discharge I spent a total of 51 minutes in the care of this patient today. This time was spent reviewing labs, vital signs, imaging, interviewing and examining the patient, and discussing plan of care with them and their other care providers. Managing his severe exacerbation of a chronic condition with heart failure exacerbation. Continuing on high risk medication with IV Lasix requiring vigilant evaluation with telemetry and metabolic profile monitoring. [id number]
[2025-03-31] MEDS: SPIRONOLACTONE 25 MG TABLET PO SCH (09:17)
[2025-03-31] MEDS: FOLIC ACID 1 MG TABLET PO SCH (09:18)
[2025-03-31] MEDS: ACETAMINOPHEN 500 MG TABLET PO SCH (14:19)
[2025-04-01 05:53] LABS: BUN - BLOOD UREA NITROGEN 9.0 mg/dL (6-20); CARBON DIOXIDE - CO2 36.0 mmol/L (21-32); CREATININE 0.6 mg/dL (0.6-1.3); GFR - MDRD 94.0 (>89)
--- NOTE | 2025-04-01 11:27 | PROVIDER PROGRESS NOTE ---
Subjective Prog Note Date Prog Note Date: 04/01/25 Prog Note Time: 11:27 Current Medications Current Medications Current Medications: Current Medications Generic Name Dose Route Start Last Admin Trade Name Sigrid PRN Reason Stop Dose Admin Acetaminophen 650 mg 03/29/25 23:11 Acetaminophen 325 Mg Tablet PO Q4HR PRN Pain 1 to 4, or Fever Acetaminophen 1,000 mg 03/31/25 14:00 04/01/25 05:22 Acetaminophen 500 Mg Tablet PO 1,000 mg TID MELANIE Administration Apixaban 5 mg 03/30/25 09:00 04/01/25 08:35 Apixaban 5 Mg Tablet PO 5 mg BID MELANIE Administration Ferrous Sulfate 325 mg 03/30/25 09:00 04/01/25 08:35 Ferrous Sulfate 325 Mg Tablet PO 325 mg DAILY MELANIE Administration Folic Acid 2 mg 03/31/25 09:00 04/01/25 08:35 Folic Acid 1 Mg Tablet PO 2 mg DAILY MELANIE Administration Furosemide 40 mg 04/02/25 09:00 Furosemide 40 Mg Tablet PO DAILY MELANIE Hydroxychloroquine Sulfate 200 mg 03/30/25 09:00 04/01/25 08:35 Hydroxychloroquine 200 Mg Tablet PO 200 mg BID MELANIE Administration Isosorbide Mononitrate 30 mg 03/30/25 09:00 04/01/25 08:35 Isosorbide Mononitrate Er 30 Mg Tablet PO 30 mg DAILY MELANIE Administration Metoprolol Succinate 50 mg 03/30/25 09:00 04/01/25 08:35 Metoprolol Succinate 50 Mg Tablet PO 50 mg DAILY MELANIE Administration Multi-Ingredient Ointment 1 applic 03/30/25 07:15 Zinc Oxide 20% Oint 60 Gm Tube TP 6XD PRN skin irritation Nystatin 1 applic 03/30/25 09:00 04/01/25 08:35 Nystatin Powder 15 Gm TOP 1 applic BID MELANIE Administration Ondansetron HCl 4 mg 03/29/25 23:11 Ondansetron 4 Mg/2 Ml Vial IVP Q6HR PRN Nausea / Vomiting Oxycodone HCl 5 mg 03/29/25 23:11 03/31/25 21:06 Oxycodone 5 Mg Tablet PO 5 mg Q8H PRN Administration PAIN >8 Sodium Chloride 10 ml 03/29/25 23:11 03/31/25 04:45 Sodium Chloride Flush 0.9% 10 Ml Syringe IVP 10 ml PRN PRN Administration NEEDED PER PROVIDER ORDERS Sodium Chloride 10 ml 03/30/25 01:00 04/01/25 08:36 Sodium Chloride Flush 0.9% 10 Ml Syringe IVP 10 ml 0100,0900,1700 MELANIE Administration Spironolactone 25 mg 03/31/25 09:00 04/01/25 08:35 Spironolactone 25 Mg Tablet PO 25 mg DAILY MELANIE Administration Tramadol HCl 50 mg 03/29/25 23:11 04/01/25 03:10 Tramadol 50 Mg Tablet PO 50 mg TID PRN Administration PAIN 5-7 Objective Vital Signs/Intake & Output Vital Signs: Vital Signs x48h Temp Pulse Pulse Resp BP Pulse Ox 04/01/25 07:15 36.7 C 66 15 137/55 H 93 04/01/25 05:22 36.7 C 69 20 128/91 H 95 Intake & Output: Intake & Output 03/29/25 03/30/25 03/31/25 04/01/25 23:59 23:59 23:59 23:59 Intake Total 1340 / 1340 1230 / 1230 180 / 180 Output Total 300 / 300 3000 / 3000 2500 / 2500 200 / 200 Balance -300 / -300 -1660 / -1660 -1270 / -1270 -20 / -20 Weight (kg) 89 kg Lab Results 03/31/25 05:23 04/01/25 05:19 Other Labs: Lab Results x24hrs 04/01/25 Range/Units 05:19 Sodium 135 (135-145) mmol/L Potassium 3.8 (3.5-4.5) mmol/L Chloride 96 L (101-111) mmol/L Carbon Dioxide 36 H (21-32) mmol/L Anion Gap 3.0 L (6-13) BUN 9 (6-20) mg/dL Creatinine 0.6 (0.6-1.3) mg/dL Estimated GFR (MDRD) 94 (>89) Glucose 96 (74-104) mg/dL Calcium 8.5 (8.5-10.3) mg/dL Assessment/Plan Problem List (1) Acute CHF (congestive heart failure): Qualifiers: Heart failure type: diastolic Qualified Code(s): I50.31 - Acute diastolic (congestive) heart failure (2) Acute respiratory failure: Qualifiers: Respiratory failure complication: hypoxia Qualified Code(s): J96.01 - Acute respiratory failure with hypoxia (3) Atrial fibrillation, permanent: (4) Acute right-sided thoracic back pain: (5) Rheumatoid arthritis:
--- NOTE | 2025-04-01 12:52 | Discharge Summary ---
Discharge Summary Admit Date: 03/29/25 Discharge Date: 04/01/25 Discharging Provider: Williams Segura Primary Care Provider: Diana Strickland Code Status: Do Not Attempt Resuscitation Discharge Facility Name: Home with Home Health DIAGNOSES Discharge Diagnoses with Status of Each Condition: ## CHF exacerbation, resolved ## Acute hypoxemic respiratory failure, resolved Patient presented with known history of heart failure with preserved ejection fraction. She also has moderate to severe mitral regurgitation and severe aortic stenosis. Last echo from earlier this year revealed EF 55 to 60%. Aortic peak velocities of 410 cm/s, mean pressure gradient of 42 mmHg. Patient is on furosemide 20 mg daily prior to his hospitalization. Not on GDMT for HFpEF. Not on Aldactone or SGLT2i Patient was treated with IV diuresis here with good urine output of 1 to 2 L each day. Her potassium remained stable. She was started on Aldactone. Repeat echo here is pending formal read but continues to demonstrate severe aortic stenosis and qualitatively normal EF. - Patient is previously discussed with her deburr technician, has declined AVR - Continue increased dose oral furosemide 40 mg daily - Continue Aldactone 25 mg daily - Will need BMP in 1 week. - PT evaluated and recommended home with home health which has been ordered. ## Longstanding persistent atrial fibrillation, chronic, stable She has a pacer/ICD in place. Her rhythm on telemetry is paced. Home medications are metoprolol tartrate 50 mg twice daily and Eliquis 5 mg p.o. twice daily - She was transitioned from Lopressor at 50 mg twice daily to Toprol 50 mg daily, consider up titration to 100 mg outpatient - Needs outpatient follow-up with cardiology ## Right-sided thoracic back pain, improved Patient was seen in the ED on 02/28 with right sided thoracic back pain thought to be musculoskeletal. She had unremarkable ED workup at that time. Chest x- rays remained unremarkable. Cardiac enzymes were normal. She has had persistent right sided thoracic chest wall pain since that time. No known injury around that time. Not relieved by lidocaine patches. She has been using oral narcotics. - Started scheduled Tylenol 1 g 3 times daily - Heating pad as needed - Family is considering pursuing medical marijuana after discharge, encouraged discussion with PCP - As needed oxycodone ## RA, chronic, stable She continues on Plaquenil 200 mg twice daily. Also takes methotrexate 40 mg QW with daily folic acid 2 mg - Home medications were continued. ## Right fifth proximal phalanx fracture Patient had age-indeterminate fracture at the base of the fifth proximal phalanx. There was initially some redness, but no ecchymosis around this area. She is having no pain with ambulation. Initially in a boot here, but discontinued use prior to discharge HPI History of Present Illness: 89 yoF with a h/o Hypertension, rheumatoid arthritis, atrial fibrillation, HFpEF 55%, pacemaker. Patient presented to the ED with a week of shortness of breath and lower extremity edema. Symptoms started with non-productive cough a week ago. She had workup that demonstrated opacities on chest xray concerning for pulmoanry edema vs pneumonia. she was started on antibotics, steroids outpatient. Symptoms persistented and she started to notice bilateral lower extremity edema. she denies any wounds or recent injury to her lower extremities. she is on lasix 40mg po as needed. on presentation to the ed she was noteed to be hypoxic on room air and required initiation of 2l nasal canula oxygen. Chest xray again demonstrated findings concerning for pulmonary edema. I will admit for acute on chronic chf adn respiratory failure. This visit was performed using telehealth tools, including phone and live-video. patient provided verbal consent to complete this telemedicine encounter. During the time my interview and evaluation, the patient was located at [facility] in the [facility], I was located in [place]. CONSULTS | PROCEDURES Consultations: None HOSPITAL COURSE Hospital Course: This is an 89-year-old female presented with HFpEF exacerbation. She is able to effectively diurese here with IV diuresis. Charted net -3200 this hospitalization, but her edema and her bilateral lower extremities is almost completely resolved. She was back to room air by hospital day 1. She feels she is better able to ambulate. She was initially unable to stand with PT when evaluated on 03/30, they were recommending SNF versus home with home health at that time. With diuresis and better pain control of her thoracic chest wall pain, she was able to ambulate someone day of discharge. [place] much better and asked to discharge home with home health. Part of this was dictated by the fact that she was discouraged by the [facility] and did not want to leave the [facility] for further rehab. Home health has been ordered for her. She was seen and evaluated on the day of discharge and discharged in stable condition. Most of what is driving her heart failure exacerbation is likely symptomatic aortic stenosis. She is well aware of this, and has had discussions with her deburr technician about an AVR. She has refused an AVR, and feels like she would not tolerate that hospitalization for such procedure. We agreed to increase her furosemide dose to 40 mg daily as she has been putting on weight with Lasix 20 mg daily. We also added Aldactone 25 mg daily. She should have a BMP checked in 1 week. She is previously on Lopressor 50 mg twice daily. She was transition to 100 mg of Toprol daily during this hospitalization, and should continue on this with consideration to titrate up to 100 mg. Finally, to clarify, she was admitted by the triage rn here and was full code through most of her hospitalization. She had clarified with this greeting card writer on her first hospital day that she wished to be DNR. She continued to endorse that throughout this hospitalization and says she has a POLST at home. We do not have one on file and it did not get completed during this hospitalization. When we discussed possible AVR at discharge, she clarified again that she is DNR and would not want resuscitative efforts. I would encourage clarity around whether she has a POLST at home with her outpatient provider. Her surrogate decision- maker is her son Hebert. ALLERGIES Allergies Allergy/AdvReac Type Severity Reaction Status Date / Time omeprazole Allergy Severe Unknown Verified 03/29/25 20:17 prednisone AdvReac Severe Nausea Verified 03/29/25 20:17 MEDICATIONS Ambulatory Orders Medication Instructions Recorded Confirmed apixaban 5 mg tablet (Eliquis) 5 mg PO BID 10/08/23 isosorbide mononitrate 30 mg 30 mg PO DAILY 10/08/23 1 05/31/24 tablet,extended release 24 hr cranberry fruit concentrate 250 mg 250 mg PO TID 07/1503/30/25 chewable tablet (Azo Cranberry) d-mannose 500 mg capsule (AZO 500 mg PO DAILY 07/15/24 03/30/25 D-Mannose) folic acid 1 mg tablet 2 mg PO DAILY 07/15/2403/30 hydroxychloroquine 200 mg tablet 200 mg PO BID Rheumat oid arthritis 03/03/25 03/30/25 30 days #60 tabs albuterol sulfate 90 mcg/actuation 2 puff inhalation Q ID PRN 03/20/25 03/30/25 aerosol inhaler (Ventolin HFA) shortness of breath or wheezing #6.7 grams pyridoxine (vitamin B6) 1 tab PO DAILY 03/30/2503/21 vitamin b12 1 dose PO DAILY 03/30/2502/12 acetaminophen 500 mg tablet 1,000 mg (2 x 500 mg) PO T ID #0 04/01/25 (Tylenol Extra Strength) tabs ferrous sulfate 325 mg (65 mg 325 mg PO DAILY #0 tabs 04/01/25 iron) tablet furosemide 40 mg tablet 40 mg PO DAILY #30 tabs 03/21 06/15 methotrexate sodium 10 mg tablet 40 mg (4 x 10 mg) PO QWEEK 04/01/25 Rheumatoid arthritis #16 tabs metoprolol succinate 50 mg 50 mg PO DAILY #30 tabs 04/14 tablet,extended release 24 hr oxycodone 5 mg tablet 5 mg PO Q8H PRN Pain >8 #10 tabs 04/01/25 spironolactone 25 mg tablet 25 mg PO DAILY #30 tabs PHYSICAL EXAM AT DISCHARGE Vital Signs: Vital Signs x48h Temp Pulse Resp BP Pulse Ox 04/01/25 14:59 36.6 C 79 20 147/77 H 94 04/01/25 11:03 37.1 C 73 16 128/57 L 94 LABS 03/31/25 05:23 04/01/25 05:19 DIAGNOSTIC IMAGING Diagnostic Imaging Results: Final report reviewed Diagnostic Imaging Results Comments: CXR 03/29 Moderate pulmonary edema and small pleural effusions. Foot x-ray 03/29 Age-indeterminate fracture at the base of the fifth proximal phalanx. FOLLOW UP Follow Up: Follow-up with PCP in 1 week, needs BMP, will bring weight logs Follow-up with cardiology in 2 to 4 weeks TIME SPENT Time Spent in Discharge (Minutes): 44 Discharge Plan Discharge Patient Disposition: Home Health Service Condition: Good Prescriptions: New furosemide 40 mg Tablet 40 mg PO DAILY Qty: 30 0RF acetaminophen [Tylenol Extra Strength] 500 mg Tablet 1,000 mg PO TID Qty: 0 0RF ferrous sulfate 325 mg (65 mg iron) Tablet 325 mg PO DAILY Qty: 0 0RF metoprolol succinate 50 mg Tablet Extended Release 24 Hr 50 mg PO DAILY Qty: 30 0RF oxycodone 5 mg Tablet 5 mg PO Q8H PRN (Reason: Pain >8) Qty: 10 0RF spironolactone 25 mg Tablet 25 mg PO DAILY Qty: 30 0RF Continued hydroxychloroquine 200 mg tablet 200 mg PO BID 30 Days Qty: 60 3RF isosorbide mononitrate 30 MG tablet extended release 24 hr 30 mg PO DAILY Eliquis 5 MG tablet 5 mg PO BID folic acid 1 mg tablet 2 mg PO DAILY AZO D-Mannose 500 mg capsule 500 mg PO DAILY Azo Cranberry 250 mg tablet,chewable 250 mg PO TID albuterol sulfate [Ventolin HFA] 90 mcg/actuation HFA aerosol inhaler 2 puff inhalation QID PRN (Reason: shortness of breath or wheezing) Qty: 6.7 0RF vitamin b12 liquid 1 dose PO DAILY pyridoxine (vitamin B6) 1 tab PO DAILY Discontinued metoprolol tartrate 50 MG tablet 50 mg PO BID furosemide 20 mg tablet 20 mg PO DAILY PRN (Reason: weight gain) No Action methotrexate sodium 10 mg tablet 40 mg PO QWEEK Qty: 16 3RF Activity Restrictions: No Restrictions Diet: Cardiac Health Concerns: You were hospitalized for a heart failure exacerbation. You have a type of heart failure called "heart failure with preserved ejection fraction" (HFpEF). This means your heart muscle squeezes normally, but it has trouble relaxing and filling with blood. This led to fluid buildup in your body, which caused your symptoms.This is made worse by your aortic valve which you know about. Treatment could include valve replacement, but outside of this the treatment involves removing fluid from your body with diuretic medications. Your Medications We are making the following changes to your medications: * Furosemide (Lasix): Increase to 40 mg once daily. This is a water pill that helps remove extra fluid from your body. Take this medication in the morning to avoid waking up at night to urinate. I want you to follow-up with your doctor within a week to get your blood levels checked. * Spironolactone (Aldactone): Start taking this new medication as prescribed. This medication helps your heart work better and may reduce your risk of being hospitalized again for heart failure. It also helps remove fluid but works differently than furosemide. * SGLT2 Inhibitor (such as dapagliflozin or empagliflozin): I would discussed with Dr. Holly whether you should start this medication. This medication has been shown to reduce hospitalizations and improve quality of life in patients with your type of heart failure. * I transitioned you from twice daily metoprolol to once daily metoprolol, this is a 24-hour version of the medicine that you were taking previously. This will better control your heart rate. Important Medication Safety Because spironolactone can affect your potassium and kidney function, you will need regular blood tests to monitor these levels. Your doctor will check your potassium and kidney function within 1-2 weeks after starting this medication Warning Signs - Call Your Doctor If: - You gain more than 2-3 pounds in one day or 5 pounds in one week - You have increased shortness of breath or difficulty breathing - You have new or worsening swelling in your legs, ankles, or abdomen - You feel more tired than usual or cannot do your normal activities - You have dizziness or feel like you might faint Daily Self-Care * Weigh yourself every morning after urinating and before eating. Write down your weight and bring this record to your appointments. * Limit salt intake: Avoid adding salt to your food and stay away from processed foods, canned soups, and fast food. * Stay active: Regular exercise as tolerated can help improve your symptoms and quality of life. * Take your medications every day as prescribed, even when you feel better. Follow-Up Care - Schedule an appointment with your doctor within 7-14 days after leaving the hospital. - You will need blood work to check your potassium and kidney function within 1- 2 weeks. - Bring your weight log to all appointments. If you find you are gaining more than 5 pounds in a 7-day period, please reach out to either your primary care or heart doctor for guidance on adjusting your diuretics. Print Language: Citizen Of [place] Patient Instructions: Heart Failure Meds, Heart Failure Dc Follow-up Care: Diana Strickland MD [Provider Admit Priv/Credential, Family Practice] Gabriel Holly MD [Physician No Access, Cardiology] Vitals documented within 30 minutes of discharge?: Yes
[2025-04-01 13:00] VITALS: O2SAT 94
[2025-04-01 15:00] VITALS: BP 147/77; TEMP 97.9
[2025-04-02] MEDS ORDERED: FUROSEMIDE 40 MG TABLET PO SCH (09:00)
--- NOTE | 2025-04-03 04:50 | ECHO Report ---
Version: 1 Study ID: [id number] [id number] Adult Echocardiogram Report Name: LESTER SRIVASTAVA Study Date: 03/31/2025, 10: 40 AM BP: 138 / 55 mmHg Patient Location: [facility]^2201^01 HR: 70 bpm : 1935 (MM/DD/YYYY) Gender: Female Height: 60 in Age: 89 Years Weight: 196.211 lb BSA: 1.85 m² Reason For Study: decompensated heart failure History: decompensated heart failure - admitted for lower extremity edema, hypoxia, shortness of breath Prior: 09/2024 (LVEF 55-60, severe aortic stenosis vmax=4.1 m/s, mean PG = 42 mmHg, RVSP = 53 mmHg, RV normal size and fx) Interpretation Summary There is mild concentric increase in the wall thickness of the left ventricle. Global left ventricular systolic function is normal. The visual left ventricular ejection fraction is estimated at 55%. Abnormal (paradoxical) septal motion consistent with paced rhythm. The right ventricle is mildly dilated. The right ventricular systolic function is normal. There is severe valvular aortic stenosis. The aortic valve mean pressure gradient is 45 mmHg. Moderate tricuspid regurgitation present. The pulmonary artery systolic pressure is moderately increased. The pulmonary artery systolic pressure, calculated from a peak tricuspid regurgitant velocity in conjunction with an estimated right atrial pressure, is 52mmHg. Left Ventricle: The left ventricle is normal in size. There is mild concentric increase in the wall thickness of the left ventricle. Global left ventricular systolic function is normal. The visual left ventricular ejection fraction is estimated at 55%. No regional wall motion abnormalities are present. Abnormal (paradoxical) septal motion consistent with paced rhythm. Right Ventricle: The right ventricle is mildly dilated. The right ventricular systolic function is normal. A pacer/defibrillator lead is present in the right heart. Aortic Valve: There is severe valvular aortic stenosis. The aortic valve mean pressure gradient is 45 mmHg. The calculated aortic valve area is 420 cm2. Tricuspid Valve: Moderate tricuspid regurgitation present. Pulmonary Artery: The pulmonary artery systolic pressure is moderately increased. The pulmonary artery systolic pressure, calculated from a peak tricuspid regurgitant velocity in conjunction with an estimated right atrial pressure, is 52mmHg. Pericardium/Pleural Space: There is no pericardial effusion. Left Ventricle IVSd: 1.05 cm LVIDd: 4.7 cm LVPWd: 1.18 cm LVIDs: 3.2 cm Right Ventricle TAPSE: 1.99 cm Aortic Valve LV V1 mean P.46 mmHg LV V1 mean: 73.7 cm/sec LV V1 VTI: 23.2 cm Ao V2 VTI: 98.3 cm Ao mean P.2 mmHg Ao V2 mean: 324.7 cm/sec LV V1 max: 98.1 cm/sec LV V1 max P.8 mmHg Ao max P.2 mmHg Ao V2 max: 418.8 cm/sec Tricuspid Valve TR max P.7 mmHg TR max vandana: 330.4 cm/sec TV max P.7 mmHg MMode/2D Measurements & Calculations BMI: 38.3 kilograms/m² BSA([facility]): 1.99 m² EF (est.): 59.1 % IVSd: 1.05 cm LVIDd: 4.7 cm LVIDs: 3.2 cm LVPWd: 1.18 cm TAPSE: 1.99 cm Doppler Measurements & Calculations Ao max P.2 mmHg Ao mean P.2 mmHg Ao V2 max: 418.8 cm/sec Ao V2 mean: 324.7 cm/sec Ao V2 VTI: 98.3 cm LV V1 max: 98.1 cm/sec LV V1 max P.8 mmHg LV V1 mean: 73.7 cm/sec LV V1 mean P.46 mmHg LV V1 VTI: 23.2 cm RAP systole: 8.0 mmHg TR max P.7 mmHg TR max vandana: 330.4 cm/sec TV max P.7 mmHg Other Measurements & Calculations EDV(Teich): 102.2 ml EF(sp-el): 50.0 % EF(Teich): 59.1 % ESV(Teich): 41.8 ml FS: 31.3 % RVSP(TR): 51.7 mmHg Procedure Notes: A focused 2D and Doppler study was performed. This study was focused secondary to referring physician. The study was done with the patient in the supine position, due to inability to lie on the left side. The underlying rhythm was paced. CPT Codes: [id number]: Color Doppler flow. [id number]: Spectral Doppler, limited. [id number]: Transthoracic Echo without spectral or color Doppler, Limited. MD Qi Blackwell 04/03/2025, 4: 49 AM Ordering Physician: Marlena Orozco Referring Physician: Jess Bashir Performed By: Kadie Estes RDCS
== END 2025-04-01 15:01 | disposition home health service (06) | DRG 291 ==
LOC: ED 20:11 → SUATTDRO 21:25 → MS2 21:25
PROVIDERS: ADMIT Hospitalist; ATTEND Student in an Organized Health Care Education/Training Program